=== PATIENT | female | born 1975 | race Caucasian/White ===

== ENCOUNTER 2017-11-24 20:00 | Emergency (ER) | payer OTHER ==
[~2017-11-24] VITALS: Ht 167.6 cm; Wt 108.9 kg
[~2017-11-24 20:00] MED LIST: AMOCLA875 PO; ASPI81CH PO; BIRTH CONTROL; BP MED; DICL250 PO; DICY20 PO; DOCU100 PO; DULO30; Esgic Tablet1 EACH PO; FENO145 PO; HYDACE5 PO; HYDROCHLOROTHIAZIDE; IBUP800; IBUP800 PO; LEVOTHYROXINE; LEVSOD100 PO; LEVSOD150 PO; LEVSOD200 PO; LEVSOD25 PO; LEVSOD75 PO; LORA10ER PO; LOSARTAN; METF500; METO100ER PO; METO25ER PO; MULVITMINE; NEBI5 PO; Norco 5-325 Ta1 EACH PO; OXYACE5T PO; Omeprazole20 M1 PO; PANT40 PO; PENVK500 PO; PHENTERMINE; POLY17UD PO; PRAV10 PO; PRAV20 PO; PROC10 PO; PROM25 PO; Percocet 5-3251 EACH PO; RANI150 PO; RXHYDACE PO; SOLI5 PO; SULTRIDS PO; TELM40/12. PO; TELM80 PO; TOPI25 PO; TRAZ50 PO; TRICOR; Zofran8 MG PO; [UNRECOGNIZED DRUG - REMARK]; [UNRECOGNIZED DRUG - REMARK]; [UNRECOGNIZED DRUG - REMARK]; [UNRECOGNIZED DRUG - REMARK]; [UNRECOGNIZED DRUG - REMARK]; [UNRECOGNIZED DRUG - REMARK]
== END 2017-11-24 23:50 | disposition home or self-care (01) ==
LOC: ER 20:00
DX: R10.32 Left lower quadrant pain (principal); Z91.048 Other nonmedicinal substance allergy status; Z91.030 Bee allergy status; Z88.5 Allergy status to narcotic agent; Z79.899 Other long term (current) drug therapy; Z90.49 Acquired absence of other specified parts of digestive tract; Z98.51 Tubal ligation status; Z90.81 Acquired absence of spleen
CPT/HCPCS: 72170; 81025; 96372; 99283; J1885

== ENCOUNTER 2018-03-01 16:40 | Emergency (ER) | payer OTHER ==
[~2018-03-01] VITALS: Ht 165.1 cm; Wt 107.5 kg
[2018-03-01 18:07] LABS: Source, Urine Clean Catch
[2018-03-01 18:13] LABS: Appearance, Urine Clear (Clear); Bilirubin, Urine Neg (Neg); Blood, Urine 1+ (Neg); Color, Urine Yellow (P-Yellow); Glucose Qualitative, Urine Neg (Neg); Ketones, Urine Neg (Neg); Leukocyte Esterase, Urine Neg (Neg); Nitrite, Urine Neg (Neg); Protein, Urine Neg (Neg); Specific Gravity, Urine 1.025 (1.003-1.022); Urobilinogen, Urine NORM (Normal)
[2018-03-01 18:19] LABS: Bacteria Rare /hpf; Mucus Mod (0-Heavy); Squamous Epithelial Cells Many /hpf (Few); White Blood Cells, Urine 0-2 /hpf (0-5)
[2018-03-01 18:57] LABS: BASOPHILS ABSOLUTE AUTO 0.09 K/mm3 (0.00-0.23); BASOPHILS PERCENT AUTO 1 % (0-2); EOSINOPHILS ABSOLUTE AUTO 0.21 K/mm3 (0.00-0.68); EOSINOPHILS PERCENT AUTO 1 % (0-6); Hematocrit 36.9 % (33.0-51.0); Hemoglobin 12.3 g/dL (11.5-16.0); IMMATURE GRAN ABSOLUTE AUTO 0.06 K/mm3 (0.00-0.10); IMMATURE GRAN PERCENT AUTO 0 % (0-1); LYMPHOCYTES ABSOLUTE AUTO 3.37 K/mm3 (0.84-5.20); LYMPHOCYTES PERCENT AUTO 23 % (21-46); MONOCYTES PERCENT AUTO 13 % (4-13); Mean Corpuscular HGB 31.5 pg (26.0-34.0); Mean Corpuscular HGB Conc 33.3 g/dL (31.5-36.5); Mean Corpuscular Volume 94 fL (80-100); Mean Platelet Volume 9.9 fL (9.1-12.4); NEUTROPHILS ABSOLUTE AUTO 9.19 K/mm3 (1.96-9.15); NEUTROPHILS PERCENT AUTO 62 % (41-73); Platelet Count 338 K/mm3 (150-400); RDW Coefficient Variation 12.9 % (11.7-14.2); RDW Standard Deviation 44.3 fL (35.1-46.3); Red Blood Cell Count 3.91 M/mm3 (3.80-5.20); White Blood Cell Count 14.92 K/mm3 (4.00-11.30)
[2018-03-01 19:13] LABS: Alanine Aminotransfer (ALT/SGP 17 U/L (12-78); Albumin, Blood 3.6 g/dL (3.4-5.0); Albumin/Globulin Ratio 1.1 (0.8-1.8); Alk Phos 65 U/L (50-136); Anion Gap 6 mmol/L (6-16); Aspartate Aminotrans (AST/SGOT 16 U/L (12-37); Bilirubin, Total 0.3 mg/dL (0.1-1.0); Blood Urea Nitrogen 12 mg/dL (8-24); Bun/Creatinine Ratio 12.9 (12.0-20.0); CO2, Blood 25 mmol/L (21-32); Calcium, Blood 9.3 mg/dL (8.5-10.1); Chloride, Blood 110 mmol/L (98-108); Creatinine, Blood 0.93 mg/dL (0.40-1.00); Globulin, Blood 3.4 g/dL (2.2-4.0); Glomerular Filtration Rate >60 (60-); Glucose, Blood 88 mg/dL (70-99); Sodium, Blood 141 mmol/L (136-145)
[2018-03-01] MEDS ORDERED: Zofran Odt4 MG SL (19:49)
[2018-03-01] MEDS ORDERED: Norco 5-325 Ta1 EACH PO (19:49)
== END 2018-03-01 20:05 | disposition home or self-care (01) ==
LOC: ER 16:40
PROVIDERS: Emergency Medicine
DX: K52.9 Noninfective gastroenteritis and colitis, unspecified (principal); Z88.8 Allergy status to other drugs, medicaments and biological substances; Z91.030 Bee allergy status; Z88.5 Allergy status to narcotic agent; Z79.899 Other long term (current) drug therapy
CPT/HCPCS: 36415; 74176; 80053; 81001; 81025; 83690; 85025; J2405

== ENCOUNTER 2018-04-20 19:28 | Emergency (ER) | payer OTHER ==
[~2018-04-20] VITALS: Ht 167.6 cm; Wt 108.9 kg
[~2018-04-20 19:28] MED LIST changes: +Zofran Odt4 MG SL
[2018-04-20 23:10] LABS: Calcium, Ionized (POC) 1.18 mmol/L (1.10-1.46); Chloride (POC) 105 mmol/L (98-108); Creatinine (POC) 0.8 mg/dL (0.6-1.0); Glucose (ISTAT POC) 83 mg/dL (70-99); Hemoglobin (POC) 11.6 g/dL (12.0-16.0); Potassium (POC) 3.8 mmol/L (3.5-5.5); Sodium (POC) 139 mmol/L (135-148); Total CO2 (POC) 23 mmol/L (21-32)
== END 2018-04-21 00:01 | disposition home or self-care (01) ==
LOC: ER 19:28
PROVIDERS: Emergency Medicine
DX: G89.18 Other acute postprocedural pain (principal); R10.31 Right lower quadrant pain; Z88.8 Allergy status to other drugs, medicaments and biological substances; Z91.030 Bee allergy status; Z88.5 Allergy status to narcotic agent; Z79.899 Other long term (current) drug therapy
CPT/HCPCS: 80047; 85014; 93926; 99284

== ENCOUNTER → 2018-04-25 | Outpatient (CLI) | payer OTHER | END | disposition home or self-care (01) | LOC: LAB EV 17:00 → LAB SHORT 17:00 | DX: N39.0 Urinary tract infection, site not specified (principal) | CPT/HCPCS: 87077; 87086; 87186 ==

== ENCOUNTER 2018-06-10 00:01 | Emergency (ER) | payer OTHER ==
[~2018-06-10] VITALS: Ht 167.6 cm; Wt 111.1 kg
[2018-06-10] MEDS ORDERED: LOSA25 PO (00:09)
[2018-06-10] MEDS ORDERED: PRAV20 PO (00:09)
[2018-06-10] MEDS ORDERED: METCAR500 PO (02:11)
== END 2018-06-10 02:29 | disposition home or self-care (01) ==
LOC: ER 00:01
DX: M43.6 Torticollis (principal); Z88.8 Allergy status to other drugs, medicaments and biological substances; Z88.5 Allergy status to narcotic agent; Z91.030 Bee allergy status; Z79.899 Other long term (current) drug therapy
CPT/HCPCS: 99282

== ENCOUNTER 2018-11-05 16:24 | Emergency (ER) | payer OTHER ==
[~2018-11-05] VITALS: Ht 167.6 cm; Wt 113.4 kg
[~2018-11-05 16:24] MED LIST changes: +LOSA25 PO; +METCAR500 PO
[2018-11-05] MEDS ORDERED: TRAZ100 PO (16:48)
[2018-11-05 17:02] LABS: BASOPHILS ABSOLUTE AUTO 0.09 K/mm3 (0.00-0.23); BASOPHILS PERCENT AUTO 1 % (0-2); EOSINOPHILS ABSOLUTE AUTO 0.25 K/mm3 (0.00-0.68); EOSINOPHILS PERCENT AUTO 2 % (0-6); Hematocrit 36.9 % (33.0-51.0); Hemoglobin 12.5 g/dL (11.5-16.0); IMMATURE GRAN ABSOLUTE AUTO 0.08 K/mm3 (0.00-0.10); IMMATURE GRAN PERCENT AUTO 1 % (0-1); LYMPHOCYTES ABSOLUTE AUTO 3.61 K/mm3 (0.84-5.20); LYMPHOCYTES PERCENT AUTO 31 % (21-46); MONOCYTES ABSOLUTE AUTO 1.59 K/mm3 (0.16-1.47); MONOCYTES PERCENT AUTO 14 % (4-13); Mean Corpuscular HGB 31.8 pg (26.0-34.0); Mean Corpuscular HGB Conc 33.9 g/dL (31.5-36.5); Mean Corpuscular Volume 94 fL (80-100); Mean Platelet Volume 9.8 fL (9.1-12.4); NEUTROPHILS ABSOLUTE AUTO 5.93 K/mm3 (1.96-9.15); NEUTROPHILS PERCENT AUTO 51 % (41-73); Platelet Count 357 K/mm3 (150-400); RDW Coefficient Variation 13.2 % (11.7-14.2); RDW Standard Deviation 45.6 fL (35.1-46.3); Red Blood Cell Count 3.93 M/mm3 (3.80-5.20); White Blood Cell Count 11.55 K/mm3 (4.00-11.30)
[2018-11-05 17:24] LABS: Alanine Aminotransfer (ALT/SGP 24 U/L (12-78); Albumin, Blood 3.3 g/dL (3.4-5.0); Albumin/Globulin Ratio 0.9 (0.8-1.8); Alk Phos 57 U/L (50-136); Anion Gap 9 mmol/L (6-16); Aspartate Aminotrans (AST/SGOT 19 U/L (12-37); Bilirubin, Total 0.2 mg/dL (0.1-1.0); Blood Urea Nitrogen 16 mg/dL (8-24); Bun/Creatinine Ratio 16.1 (12.0-20.0); CO2, Blood 21 mmol/L (21-32); Calcium, Blood 8.6 mg/dL (8.5-10.1); Chloride, Blood 109 mmol/L (98-108); Globulin, Blood 3.8 g/dL (2.2-4.0); Glomerular Filtration Rate >60 (60-); Glucose, Blood 103 mg/dL (70-99); Potassium, Blood 4.2 mmol/L (3.5-5.5); Sodium, Blood 139 mmol/L (136-145); Total Protein, Blood 7.1 g/dL (6.4-8.2); Troponin I <0.015 ng/mL (0.000-0.040)
[2018-11-05] MEDS ORDERED: Percocet 5-3251 EACH PO (19:39)
[2018-11-05] MEDS ORDERED: Keflex500 MG PO (19:39)
== END 2018-11-05 19:56 | disposition home or self-care (01) ==
LOC: ER 16:24
PROVIDERS: Physician Assistant
DX: R07.9 Chest pain, unspecified (principal); I10 Essential (primary) hypertension; K21.9 Gastro-esophageal reflux disease without esophagitis; G43.909 Migraine, unspecified, not intractable, without status migrainosus; Z88.5 Allergy status to narcotic agent; Z88.8 Allergy status to other drugs, medicaments and biological substances; Z79.899 Other long term (current) drug therapy
CPT/HCPCS: 36415; 71046; 80053; 84484; 85025; 93005; 93010; 96374; 99285-25

== ENCOUNTER 2019-02-18 22:39 | Emergency (ER) | payer OTHER ==
[~2019-02-18] VITALS: Ht 167.6 cm; Wt 111.1 kg
[~2019-02-18 22:39] MED LIST changes: +Keflex500 MG PO; +TRAZ100 PO
[2019-02-18 23:17] LABS: BASOPHILS PERCENT AUTO 1 % (0-2); EOSINOPHILS ABSOLUTE AUTO 0.08 K/mm3 (0.00-0.68); EOSINOPHILS PERCENT AUTO 1 % (0-6); Hemoglobin 13.2 g/dL (11.5-16.0); IMMATURE GRAN ABSOLUTE AUTO 0.05 K/mm3 (0.00-0.10); IMMATURE GRAN PERCENT AUTO 0 % (0-1); LYMPHOCYTES ABSOLUTE AUTO 4.76 K/mm3 (0.84-5.20); LYMPHOCYTES PERCENT AUTO 32 % (21-46); MONOCYTES ABSOLUTE AUTO 1.43 K/mm3 (0.16-1.47); MONOCYTES PERCENT AUTO 10 % (4-13); Mean Corpuscular HGB 31.4 pg (26.0-34.0); Mean Corpuscular Volume 95 fL (80-100); NEUTROPHILS PERCENT AUTO 57 % (41-73); Platelet Count 386 K/mm3 (150-400); RDW Coefficient Variation 13.5 % (11.7-14.2); RDW Standard Deviation 47.1 fL (35.1-46.3); Red Blood Cell Count 4.21 M/mm3 (3.80-5.20); White Blood Cell Count 14.92 K/mm3 (4.00-11.30)
[2019-02-18 23:41] LABS: Alanine Aminotransfer (ALT/SGP 19 U/L (12-78); Albumin, Blood 3.9 g/dL (3.4-5.0); Albumin/Globulin Ratio 1.1 (0.8-1.8); Alk Phos 61 U/L (50-136); Anion Gap 10 mmol/L (6-16); Aspartate Aminotrans (AST/SGOT 12 U/L (12-37); Bilirubin, Total 0.4 mg/dL (0.1-1.0); Blood Urea Nitrogen 22 mg/dL (8-24); Bun/Creatinine Ratio 19.8 (12.0-20.0); CO2, Blood 23 mmol/L (21-32); Calcium, Blood 9.6 mg/dL (8.5-10.1); Chloride, Blood 107 mmol/L (98-108); Creatinine, Blood 1.11 mg/dL (0.40-1.00); Globulin, Blood 3.7 g/dL (2.2-4.0); Glomerular Filtration Rate 57 (60-); Glucose, Blood 87 mg/dL (70-99); Potassium, Blood 3.9 mmol/L (3.5-5.5); Sodium, Blood 140 mmol/L (136-145); Total Protein, Blood 7.6 g/dL (6.4-8.2); Troponin I <0.015 ng/mL (0.000-0.040)
[2019-02-19 00:49] LABS: Influenza A Negative (NEGATIVE); Influenza B Negative (NEGATIVE)
== END 2019-02-19 01:40 | disposition home or self-care (01) ==
LOC: ER 22:39
PROVIDERS: Emergency Medicine
DX: J38.5 Laryngeal spasm (principal); J06.9 Acute upper respiratory infection, unspecified; Z88.5 Allergy status to narcotic agent; Z91.030 Bee allergy status; Z88.8 Allergy status to other drugs, medicaments and biological substances; Z79.899 Other long term (current) drug therapy; I10 Essential (primary) hypertension; G43.909 Migraine, unspecified, not intractable, without status migrainosus
CPT/HCPCS: 36415; 71046; 80053; 83880; 84484; 85025; 87804; 93005; 93010; 94640; 99285-25

== ENCOUNTER 2019-06-05 00:18 | Emergency (ER) | payer OTHER ==
[~2019-06-05] VITALS: Ht 167.6 cm; Wt 108.9 kg
[2019-06-05] MEDS ORDERED: CLARITIN5 MG PO (00:49)
== END 2019-06-05 01:15 | disposition home or self-care (01) ==
LOC: ER 00:18
DX: L23.7 Allergic contact dermatitis due to plants, except food (principal); Z88.8 Allergy status to other drugs, medicaments and biological substances; Z91.030 Bee allergy status; Z88.5 Allergy status to narcotic agent; Z79.899 Other long term (current) drug therapy
CPT/HCPCS: 96372; 99282-25; J3301

== ENCOUNTER 2019-08-06 18:51 | Inpatient (IN) | payer OTHER ==
[~2019-08-06] VITALS: Ht 167.6 cm; Wt 100.5 kg
[~2019-08-06 18:51] MED LIST changes: -ACET325 PO; -OMEPRAZOLE20 MG PO; -OXYM.05NI; -POLYETHYLENE G500 G1 PO; -PROM12.5S PO; -SENN187 PO; -THERA1 EACH PO; -TOPI50 PO; -WARF5 PO
[2019-08-06] MEDS ORDERED: Percocet 5-3251 EACH PO (20:09)
[2019-08-06] MEDS ORDERED: TOPI50 PO (20:09)
[2019-08-06] MEDS ORDERED: METO25ER PO (20:09)
[2019-08-06] MEDS ORDERED: THERA1 EACH PO (20:10)
[2019-08-06] MEDS ORDERED: OMEPRAZOLE20 MG PO (20:10)
--- NOTE | 2019-08-07 | NUR ---
ADMIT - ASSUMED CARE PATIENT ARRIVED VIA GURNEY FROM ER. AMBULATED WITH STEADY GAIT FROM [place] TO UNIT BED. PATIENT ALERT AND ORIENTED X4 UPON ARRIVAL. REPORTED MODERATE ABD PAIN - PATIENT STATED SHE HAD A ABD SURGERY 2 WEEKS AGO IN [place] (PICTURES TAKEN AND IN CHART)- PEG TUB NOTED IN ABD THAT PATIENT STATES SHE GIVE BOLUS FEEDINGS PRN WHEN HER BLOOD SUGARS ARE LOW. PATIENTS SPOUSE AT BEDSIDE FOR THE NIGHT. RESP E/U ON ROOM AIR. PATIENT MEDICATED FOR PAIN PER EMAR AND HEPARIN GTT STARTED PER EMAR. PATIENT IN NSR IN THE 90'S. CALL LIGHT W/I REACH, WILL CONTINUE TO [facility].
[2019-08-07 00:27] LABS: International Normalized Ratio 1.03; Prothrombin Time Results 10.9 Sec (9.7-11.5)
--- NOTE | 2019-08-07 06:00 | NUR ---
PCU ADMIT/NOC SHIFT SUMMARY PATIENT ARRIVED FROM ER AND AMBULATED FROM [place] TO UNIT BED WITH STEADY GAIT. NO FURTHER ABD PAIN REPORT AFTER PATIENT MEDICATED. HER SLEPT IN ROOM AT BEDSIDE. NO ACUTE CHANGED. HEPARIN GTT CONTINUING PER EMAR ORDERS. NO FURTHER EVENTS OR CHANGES NOTED. WILL CONTINUE TO MONITOR AND GIVE REPORT TO DAYSHIFT RN.
[2019-08-07 07:08] LABS: BASOPHILS ABSOLUTE AUTO 0.18 K/mm3 (0.00-0.23); BASOPHILS PERCENT AUTO 2 % (0-2); EOSINOPHILS ABSOLUTE AUTO 0.93 K/mm3 (0.00-0.68); EOSINOPHILS PERCENT AUTO 8 % (0-6); Hematocrit 36.6 % (33.0-51.0); Hemoglobin 12.3 g/dL (11.5-16.0); IMMATURE GRAN ABSOLUTE AUTO 0.06 K/mm3 (0.00-0.10); IMMATURE GRAN PERCENT AUTO 1 % (0-1); LYMPHOCYTES PERCENT AUTO 27 % (21-46); MONOCYTES PERCENT AUTO 14 % (4-13); Mean Corpuscular HGB 31.2 pg (26.0-34.0); Mean Corpuscular HGB Conc 33.6 g/dL (31.5-36.5); Mean Corpuscular Volume 93 fL (80-100); Mean Platelet Volume 10.7 fL (9.1-12.4); NEUTROPHILS PERCENT AUTO 49 % (41-73); Platelet Count 343 K/mm3 (150-400); RDW Coefficient Variation 12.8 % (11.7-14.2); RDW Standard Deviation 44.4 fL (35.1-46.3); Red Blood Cell Count 3.94 M/mm3 (3.80-5.20); White Blood Cell Count 11.47 K/mm3 (4.00-11.30)
[2019-08-07 07:28] LABS: Anion Gap 11 mmol/L (6-16); Blood Urea Nitrogen 12 mg/dL (8-24); Bun/Creatinine Ratio 15.4 (12.0-20.0); CO2, Blood 21 mmol/L (21-32); Calcium, Blood 8.7 mg/dL (8.5-10.1); Chloride, Blood 109 mmol/L (98-108); Creatinine, Blood 0.78 mg/dL (0.40-1.00); Glomerular Filtration Rate >60 (60-); Glucose, Blood 88 mg/dL (70-99); Potassium, Blood 3.8 mmol/L (3.5-5.5); Sodium, Blood 141 mmol/L (136-145); Troponin I 0.019 ng/mL (0.000-0.040)
--- NOTE | 2019-08-07 08:39 | NUR ---
AM NOTE. ASSUMED CARE OF PT APROX 0700, PT IS A&Ox4 AND IND/SBA IN THE ROOM. PT WAS ADMITTED FOR BILAT PE. PT IS S/P [facility] ON 07/20. PT WAS D/C'D HOME FROM [facility] ON FRIDAY 08/03. PT'S VS STABLE AT THIS TIME. PT DENIES ANY CHEST PAIN. PT C/O OF PAIN RADIATING UP HER NECK AND THROAT WITH BREATHING. PT BECOMES SLIGHTLY SOB WITH ACTIVITY BUT O2 SATS STAY ABOVE 92%. PT IS ON RA AT THIS TIME. PT HAS MIDLINE INCISION WITH A FEW YEN THAT WILL BE REMOVED TODAY PER 'S VERBAL ORDER. PT HAS PEG TUBE TO THE RUQ WITH SOME YELLOW/GREEN DISCHARGE, PROVIDER IS AWARE. PT'S IS AT THE BEDSIDE. CALL LIGHT IN REACH, BED IS LOCKED AND LOW WILL CONTINUE TO MONITOR.
--- NOTE | 2019-08-07 11:48 | NUR ---
ASSUMED CARE OF PATIENT AT APROX 1145. ASSESSMENT DONE AT THIS TIME, LUNGS DIM IN BASES, DENIES SOB AT REST BUT STATES DOES HAVE INCREASING SOB W/AMBULATION. MIDLINE ABDOMINAL INCISION OPEN TO AIR WITH YEN AND STERI STRIPS, YEN TO BE REMOVED TODAY PER REPORTING RN. PEG TUB PRESENT IN LUQ, PT REPORTS TENDERNESS AT SITE, NO REDNESS OR DRAINAGE FROM SITE. HEPARIN DRIP RUNNING PER EMAR.
--- NOTE | 2019-08-07 14:02 | NUR ---
Echocardiogram completed.
--- NOTE | 2019-08-07 15:57 | NUR ---
HEPARIN INFUSION RATE INCREASED TO 27.4ML/HR. VERIFIED WITH MER NIETO RN
--- NOTE | 2019-08-07 18:44 | NUR ---
SHIFT SUMMARY PT HAS DONE WELL THIS SHIFT. NO C/O SOB AT REST, MODERATE W/EXCERTION. HEPARIN GTT PER EMAR. YEN REMOVED FROM ABDOMINAL INCISION AND STERI-STRIP PLACED AT UMBILICUS. PEG TUBE FLUSHED WITH 30ML WATER PER PT REQUEST. TOLERATING SMALL AMOUNTS OF PO. DIETARY IN TO SPEAK WITH PT RE NUTRITIONAL INTAKE.
[2019-08-08 04:02] LABS: Hemoglobin 11.9 g/dL (11.5-16.0); Mean Corpuscular HGB 30.9 pg (26.0-34.0); Mean Corpuscular HGB Conc 33.1 g/dL (31.5-36.5); Mean Corpuscular Volume 94 fL (80-100); Platelet Count 293 K/mm3 (150-400); RDW Coefficient Variation 12.9 % (11.7-14.2); RDW Standard Deviation 44.4 fL (35.1-46.3); Red Blood Cell Count 3.85 M/mm3 (3.80-5.20); White Blood Cell Count 10.94 K/mm3 (4.00-11.30)
[2019-08-08 04:19] LABS: Anion Gap 7 mmol/L (6-16); Blood Urea Nitrogen 10 mg/dL (8-24); CO2, Blood 21 mmol/L (21-32); Calcium, Blood 8.8 mg/dL (8.5-10.1); Chloride, Blood 113 mmol/L (98-108); Creatinine, Blood 0.77 mg/dL (0.40-1.00); Glomerular Filtration Rate >60 (60-); Glucose, Blood 90 mg/dL (70-99); Potassium, Blood 4.7 mmol/L (3.5-5.5); Sodium, Blood 141 mmol/L (136-145)
[2019-08-08 04:23] LABS: International Normalized Ratio 1.02; Prothrombin Time Results 10.8 Sec (9.7-11.5)
--- NOTE | 2019-08-08 04:27 | NUR ---
Nurse notified me to not get the 4:30 CBG
--- NOTE | 2019-08-08 05:14 | NUR ---
PCU NOC SHIFT SUMMARY PATIENT REMAINS ALERT AND ORIENTED T/O SHIFT X4. RESP E/U AT REST ON ROOM AIR - REPORTS SOME 'DIAPHRAM' PAIN WITH DEEP BREATHS. PATIENT ENCOURAGED TO COUGH AND DEEP BREATH, O2 SATURATION WNL - SEE VS. LUNG SOUNDS CLEAR. NO CARDIAC EVENTS PER PAPER WRAPPING MACHINE OPERATOR, PATIENT REMAINED IN NSR TO ST IN THE 90-105. PATIENT AMBULATES TO BATHROOM INDEPENDENTLY - SHOWERED THIS SHIFT, TOLERATED WELL. CALL LIGHT W/I REACH, WILL CONTINUE TO MONITOR AND REPORT TO DAYSHIFT RN.
--- NOTE | 2019-08-08 07:29 | NUR ---
Bedside report received from Rachel Gupta RN. The pt is awake, and has no complaints at this time. Heparin drip was verified at the bedside with 2 RNs and the eMAR.
--- NOTE | 2019-08-08 18:34 | NUR ---
SHIFT SUMMARY OX4 PLEASANT. AMBULATES WELL. HEPARIN GTT AND PO COUMADIN DOSING. RECENT GASTRIC SURGERY. DUMPING SYNDROME. PEG TUBE "FOR VEGAN SUPPLEMENTS/SHAKES" BUT EATS AND DRINKS WELL. HODGKIN'S LYMPHOMA. BILATERAL PE'S. NEGATIVE FOR DVT'S TODAY.
--- NOTE | 2019-08-08 21:49 | NUR ---
PCU NOC SHIFT NOTE PATIENT SITTING UP IN BED VISITING WITH FAMILY. PATIENT ALERT AND ORIENTED X4. PATIENT REPORTS ON GOING CHRONIC/ACUTE PAIN IN HER ABD AND RIBS/DIAPHRAM - PATIENT MEDICATED PER EMAR AND POSITIONED FOR COMFORT. PATIENTS SUGICAL SITE IS HEALING WELL - 3 STERI STRIPS NOTED, OTHERWISE OPEN TO AIR. PEG TUB ALSO NOTED (NO CARE ORDERS AT THIS TIME FOR PEG). RESP E/U AT REST WITH SHALLOW BREATHING NOTED, OCCASSIONAL COUGH - PATIENT REMAINS ON ROOM AIR. HEPARIN GTT RUNNING PER EMAR LAST VERIFIED WITH DANYEL De La Paz RN. NO ACUTE FINDINGS. PATIENT MED NO TELE AT THIS TIME. CALL LIGHT W/I REACH. WILL CONTINUE TO MONITOR.
--- NOTE | 2019-08-09 00:40 | NUR ---
REPORTED TO ELIANA PRITCHARD. PATIENT VISITING W/ FAMILY IN ROOM. CALL LIGHT W/I REACH.
--- NOTE | 2019-08-09 03:44 | NUR ---
ASSUMED PT CARE FROM FRANCHESKA MONROY AT 0300 PT SITTING UP IN BED; VERY SOFT SPOKEN. ALERT AND ORIENTED X4; ABLE TO MAKE NEEDS KNOWN. POWERGLIDE TO LEFT UPPER ARM; HEPARIN GTT INFUSING AT 22UNITS/KG/HR AT A RATE OF 33.4 MLS/HR, AND NS INFUSING AT 100MLS/HR. LUNG SOUNDS ARE CLEAR TO BILATERAL UPPER LOBES AND DIMINISHED TO BILATERAL LOWER LOBES. NO COUGH NOTED. ABDOMEN IS SOFT, TENDER TO INCISION WITH SLIGHT DEHISCENCE TO INCISION PROXIMAL TO UMBILICUS. THE REST OF INCISION IS WELL APPROXIMATED WITH NO S/SX OF DEHISCENCE. PT EDUCATED REGARDING SPLINTING WITH PILLOW FOR COUGHING, REPOSITIONING, ETC... PT DEMONSTRATED UNDERSTANDING. ACTIVE BTX4. PEG TUBE REMAINS SUTURED TO LEFT UPPER QUADRANT; HOWEVER, PT ABLE TO SWALLOW AND EAT ADEQUATELY. THEREFORE, PEG TUBE HAS NOT BEEN USED. MEDICATED WITH TWO TABS OF PERCOCET R/T 4/10 PAIN TO ABDOMEN. NO EDEMA NOTED. PT IS INDEPENDENT WITH REPOSITIONING SELF IN BED. CALL LIGHT LEFT WITHIN REACH; PT ABLE TO MAKE NEEDS KNOWN.
[2019-08-09 03:48] LABS: Hematocrit 34.6 % (33.0-51.0); Hemoglobin 11.5 g/dL (11.5-16.0); Mean Corpuscular HGB 31.6 pg (26.0-34.0); Mean Corpuscular HGB Conc 33.2 g/dL (31.5-36.5); Mean Corpuscular Volume 95 fL (80-100); Mean Platelet Volume 10.9 fL (9.1-12.4); Platelet Count 313 K/mm3 (150-400); RDW Coefficient Variation 12.7 % (11.7-14.2); RDW Standard Deviation 44.4 fL (35.1-46.3); Red Blood Cell Count 3.64 M/mm3 (3.80-5.20); White Blood Cell Count 8.78 K/mm3 (4.00-11.30)
[2019-08-09 04:07] LABS: International Normalized Ratio 1.13; Prothrombin Time Results 11.8 Sec (9.7-11.5)
--- NOTE | 2019-08-09 18:13 | NUR ---
SHIFT SUMMARY PT CONTINUED ON HEPARIN DRIP. NO CHANGES TO DOSING. 22 INFUSION RATE. PT MEDICATED FOR PAIN TWICE THIS SHIFT. REPORTS MOST PAIN AROUND HER PEG TUBE. PT ABD WOUND CLEANED & DRESSED THIS SHIFT. NO OTHER CHANGES IN ASSESSMENT AT THIS TIME. VSS. WILL CONTINUE TO MONITOR UNTIL TURNOVER IS COMPLETE.
[2019-08-10 06:17] LABS: International Normalized Ratio 1.72; Prothrombin Time Results 17.4 Sec (9.7-11.5)
--- NOTE | 2019-08-10 06:38 | NUR ---
SHIFT SUMMARY PT HAS REMAINED AOX4 THROUGHOUT SHIFT. VSS. PLEASANT AND COOPERATIVE WITH CARE. PT REMAINS INDEPENDENT IN ROOM THROUGHOUT SHIFT, ABLE TO AMBULATE SELF TO RESTROOM WITHOUT DIFFICULTY. PT MEDICATED MULTIPLE TIMES THROUGHOUT THE NIGHT FOR PAIN TO ABDOMEN THAT DECREASED WITH ORDERED MEDICATIONS. PT STATES THAT SITE WHERE PEG TUBE IS PLACED IS SOURCE OF DISCOMFORT, WELL SURGICAL INCISION. INCISION AND PEG SITE WITH NO REDNESS, SWELLING OR SIGNIFICANT DRAINAGE NOTED. HEPARIN DRIP CONTINUES TO INFUSE PER ORDERS AND MANAGED PER PHARMACY. PT ABLE TO REST IN BED THROUGHOUT MUCH OF THE NIGHT. NO OTHER CHANGES NOTED FROM INITIAL ASSESSMENT. WILL CONTINUE TO MONITOR AND REPORT TO ONCOMING SHIFT RN. BED IN LOW POSITION, CALL LIGHT IN REACH.
--- NOTE | 2019-08-10 09:30 | NUR ---
ASSESSMENT- PT AWAKE, ALERT, COOPERATIVE. C/O PAIN AROUND PEG SITE, REDDENED AREA AT SITE NOTED, TUBE INTACT AND PLUGGED. ABDOMEN SOFT, NO N/V. LUNGS CLEAR, NO SOB. APICAL REGULAR, VSS, AFEBRILE. ML INCISION INTACT WITH SMALL DRESSING DI.
--- NOTE | 2019-08-10 11:30 | NUR ---
REPORT TO ELISE PRITCHARD ON SURGICAL FLOOR.
--- NOTE | 2019-08-10 11:35 | NUR ---
PT MOVED TO 211.
--- NOTE | 2019-08-10 14:20 | NUR ---
HEPARIN INFUSION RATE DECREASED TO 33.4 ML/HR, VERIFIED BY 2ND RN.
--- NOTE | 2019-08-10 19:09 | NUR ---
Echocardiogram completed.
[2019-08-11 05:44] LABS: BASOPHILS PERCENT AUTO 1 % (0-2); EOSINOPHILS ABSOLUTE AUTO 1.44 K/mm3 (0.00-0.68); EOSINOPHILS PERCENT AUTO 14 % (0-6); Hematocrit 37.5 % (33.0-51.0); Hemoglobin 12.7 g/dL (11.5-16.0); IMMATURE GRAN ABSOLUTE AUTO 0.07 K/mm3 (0.00-0.10); IMMATURE GRAN PERCENT AUTO 1 % (0-1); LYMPHOCYTES ABSOLUTE AUTO 2.97 K/mm3 (0.84-5.20); LYMPHOCYTES PERCENT AUTO 29 % (21-46); MONOCYTES ABSOLUTE AUTO 0.95 K/mm3 (0.16-1.47); MONOCYTES PERCENT AUTO 9 % (4-13); Mean Corpuscular HGB 30.9 pg (26.0-34.0); Mean Corpuscular HGB Conc 33.9 g/dL (31.5-36.5); Mean Platelet Volume 10.8 fL (9.1-12.4); NEUTROPHILS ABSOLUTE AUTO 4.76 K/mm3 (1.96-9.15); NEUTROPHILS PERCENT AUTO 46 % (41-73); Platelet Count 337 K/mm3 (150-400); RDW Coefficient Variation 12.7 % (11.7-14.2); RDW Standard Deviation 41.6 fL (35.1-46.3); Red Blood Cell Count 4.11 M/mm3 (3.80-5.20); White Blood Cell Count 10.29 K/mm3 (4.00-11.30)
[2019-08-11 05:46] LABS: Mean Corpuscular Volume 91 fL (80-100)
--- NOTE | 2019-08-11 05:54 | NUR ---
PT VSS T/O NIGHT, HR SINUS 70'S PER TELE MONITOR. SATS >92% ON RA. PT CONT TO REP SOB W/MILD EXERTION, SBA PRN W/OOB. INCISIONS CDI, G-TUBE SITE WNL. PT REP PAIN AT G-TUBE SITE, MEDICATED PER EMAR. HEPARIN GTT CONT PER ORDERS. ECHO COMPLETED, NO NEW ORDERS REC. PT USING CALL LIGHT FOR ASSISTANCE, WILL CONT TO MONITOR UNTIL REP GIVEN TO ONCOMING RN.
[2019-08-11 06:01] LABS: Anion Gap 8 mmol/L (6-16); Blood Urea Nitrogen 10 mg/dL (8-24); Bun/Creatinine Ratio 11.2 (12.0-20.0); CO2, Blood 21 mmol/L (21-32); Calcium, Blood 9.5 mg/dL (8.5-10.1); Chloride, Blood 109 mmol/L (98-108); Creatinine, Blood 0.89 mg/dL (0.40-1.00); Glomerular Filtration Rate >60 (60-); Glucose, Blood 105 mg/dL (70-99); Potassium, Blood 3.5 mmol/L (3.5-5.5); Sodium, Blood 138 mmol/L (136-145)
[2019-08-11 06:22] LABS: International Normalized Ratio 2.28; Prothrombin Time Results 22.4 Sec (9.7-11.5)
--- NOTE | 2019-08-11 07:16 | NUR ---
HEPARIN INFUSION RATE ADJUSTED TO 32.7 ML/HR. VERIFIED WITH SECOND RN
--- NOTE | 2019-08-12 08:06 | NUR ---
SHIFT SUMMARY PT RESTED WELL THIS AM. AAOX4. ABD + EAST CONTROLLED WITH 2 PAIN PILLS X1 THIS SHIFT. NO NAUSEA/EMESIS. ABD INCISION C/D/I, PEG TUBE FLUSHED WITH 30cc NS. HEP GTT PER ORDERS. CRITICAL PTT NOTED THIS SHIFT, RE-DRAW DONE CONFIRMING SUSPICION OF CONTAMINATED SAMPLE. NO ACUTE CHANGES THIS SHIFT. PT RESTING AT THIS TIME, CALL LIGHT IN REACH.
[2019-08-12 09:18] LABS: BASOPHILS ABSOLUTE AUTO 0.09 K/mm3 (0.00-0.23); BASOPHILS PERCENT AUTO 1 % (0-2); EOSINOPHILS ABSOLUTE AUTO 1.13 K/mm3 (0.00-0.68); EOSINOPHILS PERCENT AUTO 12 % (0-6); Hematocrit 37.1 % (33.0-51.0); Hemoglobin 12.6 g/dL (11.5-16.0); IMMATURE GRAN ABSOLUTE AUTO 0.04 K/mm3 (0.00-0.10); IMMATURE GRAN PERCENT AUTO 0 % (0-1); LYMPHOCYTES ABSOLUTE AUTO 3.63 K/mm3 (0.84-5.20); LYMPHOCYTES PERCENT AUTO 37 % (21-46); MONOCYTES ABSOLUTE AUTO 0.94 K/mm3 (0.16-1.47); MONOCYTES PERCENT AUTO 10 % (4-13); Mean Corpuscular HGB 31.2 pg (26.0-34.0); Mean Corpuscular Volume 92 fL (80-100); Mean Platelet Volume 10.7 fL (9.1-12.4); NEUTROPHILS ABSOLUTE AUTO 3.93 K/mm3 (1.96-9.15); NEUTROPHILS PERCENT AUTO 40 % (41-73); Platelet Count 335 K/mm3 (150-400); RDW Coefficient Variation 12.7 % (11.7-14.2); RDW Standard Deviation 42.5 fL (35.1-46.3); Red Blood Cell Count 4.04 M/mm3 (3.80-5.20); White Blood Cell Count 9.76 K/mm3 (4.00-11.30)
[2019-08-12 09:50] LABS: Anion Gap 9 mmol/L (6-16); Blood Urea Nitrogen 8 mg/dL (8-24); Bun/Creatinine Ratio 9.4 (12.0-20.0); CO2, Blood 23 mmol/L (21-32); Calcium, Blood 9.3 mg/dL (8.5-10.1); Chloride, Blood 110 mmol/L (98-108); Creatinine, Blood 0.85 mg/dL (0.40-1.00); Glomerular Filtration Rate >60 (60-); Glucose, Blood 93 mg/dL (70-99); Potassium, Blood 4.1 mmol/L (3.5-5.5); Sodium, Blood 142 mmol/L (136-145)
--- NOTE | 2019-08-12 13:53 | NUR ---
TELEPHONE CALL TO HOSPITALIST R/T PT NAUSEA AND ONLY PO PHENERGAN ORDERED AND BLOODY NOSES. NEW ORDERS RECEIVED: CHANGE PHENERGAN ROUTE TO IV AND CONSULT ENT FOR CAUTERIZATION IF BLOODY NOSES ARE LG AMOUNT.
--- NOTE | 2019-08-12 17:31 | NUR ---
SHIFT SUMMARY PT A&OX4, VSS, BEDREST WITH BRP, VOIDING WELL, LOW PO INTAKE, HEPARIN INFUSING, AWAITING FOLLOWUP CONSULT WITH DR HAM - CALLED OFFICE AND TT HIS [employer] SERVICE SCHEDULER TODAY AND SHE SAID SHE WOULD TEXT HIM AND LET HIM KNOW PT IS WAITING. AFRIN NASAL SPRAY IN PT DRAWER FOR NOSE BLEEDS. WILL REPORT TO ONCOMING TERRENCE RN.
--- NOTE | 2019-08-13 06:52 | NUR ---
PT HAD NO ACUTE CHANGES T/O NIGHT; VSS. PT REMAINS SOB W/EXERTION, DENIES AT REST. PT HAD NO C/O CP/PRESSURE. PO INTAKE MINIMAL, FLUIDS ENC PT RAMY. PT W/FLAT AFFECT, VERBALIZED FEELING DISCOURAGED W/PROLONGED HOSP STAY. SUPPORT PRN T/O NIGHT. PT INDEP IN ROOM, IS USING CALL LIGHT FOR ASSISTANCE. HEPARIN GTT TITRATED X2 THIS SHIFT PER PHARMACY ORDERS. AWAITING DR HAM INPUT. WILL CONT TO MONITOR UNTIL REP GIVEN TO ONCOMING RN.
[2019-08-13 11:47] LABS: International Normalized Ratio 1.76; Prothrombin Time Results 17.7 Sec (9.7-11.5)
--- NOTE | 2019-08-13 16:21 | NUR ---
SUMMARY PT AAOX4, VSS. HEPARING DOSE CONTINUED ON PATIENT. PT SHOWERED AND AMBULATED TO RESTROOM WITH SOME SHORTNESS OF BREATH. COMPLAINED OF PAIN ONCE TODAY. PATIENT HAS HAD A POSITIVE AFFECT AND BEEN SMILING AND LAUGHING WITH STAFF AND VISITORS. PLAN IS TO CONTINUE HEPARIN AND DISCHARGE TO HOME ON COUMADIN ON SATURDAY. PATIENT TOLERATING MINIMAL PO FOOD. DENIES NAUSEA TODAY.
[2019-08-14 04:58] LABS: International Normalized Ratio 1.63; Prothrombin Time Results 16.5 Sec (9.7-11.5)
--- NOTE | 2019-08-14 07:17 | NUR ---
SUMMARY PT VOIDING WITHOUT DIFF.PLACED SPECIPAN FOR I/O AND DISCUSSED WITH PT. PT REPORTING PO PAIN MEDS EFFECTIVE. PT VERB NO INCREASED SOB NOTED. HEP GTT WITH NO ADJUSTMENTS TO BE MADE THIS AM.BRIDGING WITH COUMADIN. PT RECEIVED FIRST DOSE LAST NIGHT. LAB DRAWS WILL CONT FOR FOLLOW UP. NO ACUTE CHANGES TONIGHT. PTWITH POOR PO INTAKE.G TUBE NOT CURRENTLY BEING USED. WILL DISCUSS WITH DAY RN REGARDING ? IV FLUIDS,?G TUBE USE FOR IMPROVED INTAKE.PT HAS ? REGARDING THIS AND CARE / FOLLOW UP IN GENERAL.GAVE PT NOTE PAD TO WRITE DOWN ? TO BE DISCUSSED WITH DR PITTS.
--- NOTE | 2019-08-14 17:10 | NUR ---
PT COUGHED UP SMALL AMT SPUTUM TINGED WITH BLOOD TALKED WITH PT IF SHE HAS HAD ANY OTHER BLEEDING STATED NO AT HOME SHE HAS SOME WHEN SHE BRUSHES HER TEETH
--- NOTE | 2019-08-14 17:35 | NUR ---
meds given as sched pt visiting with friends and family meds given as sched
[2019-08-15 05:31] LABS: BASOPHILS ABSOLUTE AUTO 0.07 K/mm3 (0.00-0.23); BASOPHILS PERCENT AUTO 1 % (0-2); EOSINOPHILS ABSOLUTE AUTO 2.23 K/mm3 (0.00-0.68); EOSINOPHILS PERCENT AUTO 19 % (0-6); Hematocrit 34.6 % (33.0-51.0); Hemoglobin 11.4 g/dL (11.5-16.0); IMMATURE GRAN ABSOLUTE AUTO 0.07 K/mm3 (0.00-0.10); IMMATURE GRAN PERCENT AUTO 1 % (0-1); LYMPHOCYTES ABSOLUTE AUTO 5.39 K/mm3 (0.84-5.20); LYMPHOCYTES PERCENT AUTO 45 % (21-46); MONOCYTES ABSOLUTE AUTO 1.29 K/mm3 (0.16-1.47); MONOCYTES PERCENT AUTO 11 % (4-13); Mean Corpuscular HGB 31.1 pg (26.0-34.0); Mean Corpuscular HGB Conc 32.9 g/dL (31.5-36.5); Mean Platelet Volume 10.6 fL (9.1-12.4); NEUTROPHILS ABSOLUTE AUTO 2.82 K/mm3 (1.96-9.15); NEUTROPHILS PERCENT AUTO 24 % (41-73); Platelet Count 303 K/mm3 (150-400); RDW Coefficient Variation 13.1 % (11.7-14.2); RDW Standard Deviation 45.3 fL (35.1-46.3); Red Blood Cell Count 3.66 M/mm3 (3.80-5.20); White Blood Cell Count 11.87 K/mm3 (4.00-11.30)
[2019-08-15 05:32] LABS: Mean Corpuscular Volume 95 fL (80-100)
[2019-08-15 05:54] LABS: Anion Gap 8 mmol/L (6-16); Blood Urea Nitrogen 10 mg/dL (8-24); Bun/Creatinine Ratio 10.9 (12.0-20.0); CO2, Blood 20 mmol/L (21-32); Calcium, Blood 8.8 mg/dL (8.5-10.1); Chloride, Blood 114 mmol/L (98-108); Creatinine, Blood 0.92 mg/dL (0.40-1.00); Glomerular Filtration Rate >60 (60-); Glucose, Blood 81 mg/dL (70-99); Sodium, Blood 142 mmol/L (136-145)
--- NOTE | 2019-08-15 06:13 | NUR ---
SHIFT SUMMARY LYING IN LOW FOWLERS WITH EYES CLOSED. HAS BEEN OOB AMBULATING TO BATHROOM X2 THIS SHIFT. MEDICATED FOR PAIN X2. EDUCATED ABOUT HEPARIN AND COUMADIN THERAPY, VOICES UNDERSTANDING. DENIES PAIN, DOSCOMFORT, OR FURTHER NEEDS AT THIS TIME. SAFETY MEASURES IN PLACE. WILL GIVE HAND OFF TO ONCOMING SHIFT USING SBAR.
[2019-08-15 07:27] LABS: International Normalized Ratio 2.82; Prothrombin Time Results 27.2 Sec (9.7-11.5)
[2019-08-15 16:14] LABS: International Normalized Ratio 3.52
[2019-08-15 16:16] LABS: Prothrombin Time Results 33.3 Sec (9.7-11.5)
--- NOTE | 2019-08-15 16:42 | NUR ---
SHIFT SUMMARY PT A&OX4, VSS, C/O SOB W/EXERTION ALTHOUGH PT REP NOT WORSENING. LAB DRAWS ORDERED, HEPARIN INFUSING, TITRATED 2X (18) - ONCE THERAPEUTIC PT WILL DC HOME. ONCE DC IS PLANNED, HOSPITALIST WANTS AN RT HOME EVAL COMPLETED PRIOR. POOR PT INTAKE. VOIDING WELL. AMB INDEPENDENT IN ROOM, TO BRP. WILL REPORT OFF TO ONCOMING NOC RN.
[2019-08-16 04:36] LABS: International Normalized Ratio 3.35; Prothrombin Time Results 31.8 Sec (9.7-11.5)
--- NOTE | 2019-08-16 06:35 | NUR ---
SUMMARY NO ACUTE CHANGES THROUGH THE NIGHT. PT DENIES CP/SOB. O2 SATS REMAIN GREATER THAN 92% ON RA. CONT BIOX IN PLACE. HEPERIN INFUSING PER EMAR ORDERS AT 17.5 UNITS PER HR. . PT'S IS AT THE BEDSIDE. PT WAS ABLE TO SHOWER LAST NIGHT. G TUBE FKUSHED WITH 30 ML WATER. INCISION EDGES INTACT. CALL LIGHT IN REACH.
[2019-08-16] MEDS ORDERED: ACET325 PO (12:14)
[2019-08-16] MEDS ORDERED: OXYM.05NI (12:15)
[2019-08-16] MEDS ORDERED: POLYETHYLENE G500 G1 PO (12:17)
[2019-08-16] MEDS ORDERED: PROM12.5S PO (12:19)
[2019-08-16] MEDS ORDERED: WARF5 PO (12:39)
[2019-08-16] MEDS ORDERED: SENN187 PO (12:46)
--- NOTE | 2019-08-16 15:22 | NUR ---
DISCHARGE SUMMARY PT A&OX4, VSS, LEFT FLOOR VIA WC WITH DATA SUPPORT ANALYST, TO GO HOME WITH , WITH ALL PERSONAL POSSESSIONS; SCRIPTS FAXED TO [facility]. DC INSTRUCTIONS PROVIDED. PT AND REP UNDERSTANDING DC INSTRUCTIONS AND FU WITH PCP, COUMADIN, LABS, DIET. POWERGLIDE DC'D.
== END 2019-08-16 13:26 | disposition home or self-care (01) | DRG 176 ==
LOC: ER 18:51 → PCU 21:21 → SURS 21:21 → PCU 22:15 → SURS 08-10 11:51
PROVIDERS: Family Medicine; Internal Medicine; Nurse Practitioner Acute Care; ADMIT Internal Medicine
DX: I26.99 Other pulmonary embolism without acute cor pulmonale (principal); C81.90 Hodgkin lymphoma, unspecified, unspecified site; Z98.84 Bariatric surgery status; Z71.89 Other specified counseling; K21.9 Gastro-esophageal reflux disease without esophagitis; Z74.01 Bed confinement status; Z68.35 Body mass index [BMI] 35.0-35.9, adult; R04.0 Epistaxis; E66.01 Morbid (severe) obesity due to excess calories; I27.20 Pulmonary hypertension, unspecified
CPT/HCPCS: 36415; 36430; 71260; 80048; 82947; 84484; 85025; 85027; 85610; 85730; 93005; 93010; 93306; 93970; 94761; 94762; 96372; 99284-25; C1751; J1170; J1644; J1650; J2550; J7030; Q9967

== ENCOUNTER → 2019-08-06 | Outpatient (CLI) | payer OTHER ==
[~2019-08-06] MED LIST changes: +ACET325 PO; +CLARITIN5 MG PO; +OMEPRAZOLE20 MG PO; +OXYM.05NI; +POLYETHYLENE G500 G1 PO; +PROM12.5S PO; +SENN187 PO; +THERA1 EACH PO; +TOPI50 PO; +WARF5 PO
[2019-08-06 17:30] LABS: BASOPHILS ABSOLUTE AUTO 0.17 K/mm3 (0.00-0.23); BASOPHILS PERCENT AUTO 1 % (0-2); EOSINOPHILS ABSOLUTE AUTO 0.59 K/mm3 (0.00-0.68); EOSINOPHILS PERCENT AUTO 4 % (0-6); Hematocrit 40.6 % (33.0-51.0); Hemoglobin 13.8 g/dL (11.5-16.0); IMMATURE GRAN ABSOLUTE AUTO 0.06 K/mm3 (0.00-0.10); IMMATURE GRAN PERCENT AUTO 1 % (0-1); LYMPHOCYTES ABSOLUTE AUTO 2.16 K/mm3 (0.84-5.20); LYMPHOCYTES PERCENT AUTO 16 % (21-46); MONOCYTES ABSOLUTE AUTO 1.55 K/mm3 (0.16-1.47); MONOCYTES PERCENT AUTO 12 % (4-13); Mean Corpuscular HGB 31.5 pg (26.0-34.0); Mean Corpuscular Volume 93 fL (80-100); Mean Platelet Volume 10.4 fL (9.1-12.4); NEUTROPHILS ABSOLUTE AUTO 8.73 K/mm3 (1.96-9.15); NEUTROPHILS PERCENT AUTO 66 % (41-73); Platelet Count 395 K/mm3 (150-400); RDW Coefficient Variation 12.7 % (11.7-14.2); RDW Standard Deviation 43.3 fL (35.1-46.3); Red Blood Cell Count 4.38 M/mm3 (3.80-5.20); White Blood Cell Count 13.26 K/mm3 (4.00-11.30)
[2019-08-06 17:34] LABS: Anion Gap 11 mmol/L (6-16); Blood Urea Nitrogen 12 mg/dL (8-24); Bun/Creatinine Ratio 13.2 (12.0-20.0); CO2, Blood 23 mmol/L (21-32); Calcium, Blood 9.5 mg/dL (8.5-10.1); Chloride, Blood 106 mmol/L (98-108); Creatinine, Blood 0.91 mg/dL (0.40-1.00); Glomerular Filtration Rate >60 (60-); Glucose, Blood 94 mg/dL (70-99); Potassium, Blood 4.3 mmol/L (3.5-5.5); Sodium, Blood 140 mmol/L (136-145)
== END | disposition home or self-care (01) ==
LOC: LAB EV 17:25 → LAB SHORT 17:25
PROVIDERS: Family Medicine
DX: R07.81 Pleurodynia (principal)
CPT/HCPCS: 80048; 85025

== ENCOUNTER 2019-08-21 20:02 | Emergency (ER) | payer OTHER ==
[~2019-08-21] VITALS: Ht 167.6 cm; Wt 95.7 kg
[~2019-08-21 20:02] MED LIST changes: +ACET325 PO; +OMEPRAZOLE20 MG PO; +OXYM.05NI; +POLYETHYLENE G500 G1 PO; +PROM12.5S PO; +SENN187 PO; +THERA1 EACH PO; +TOPI50 PO; +WARF5 PO
[2019-08-21 22:50] LABS: BASOPHILS PERCENT AUTO 1 % (0-2); EOSINOPHILS ABSOLUTE AUTO 1.73 K/mm3 (0.00-0.68); EOSINOPHILS PERCENT AUTO 15 % (0-6); Hematocrit 36.2 % (33.0-51.0); Hemoglobin 12.3 g/dL (11.5-16.0); IMMATURE GRAN ABSOLUTE AUTO 0.03 K/mm3 (0.00-0.10); IMMATURE GRAN PERCENT AUTO 0 % (0-1); LYMPHOCYTES ABSOLUTE AUTO 4.05 K/mm3 (0.84-5.20); LYMPHOCYTES PERCENT AUTO 36 % (21-46); MONOCYTES ABSOLUTE AUTO 1.08 K/mm3 (0.16-1.47); MONOCYTES PERCENT AUTO 10 % (4-13); Mean Corpuscular HGB 31.5 pg (26.0-34.0); Mean Corpuscular Volume 93 fL (80-100); Mean Platelet Volume 10.5 fL (9.1-12.4); NEUTROPHILS ABSOLUTE AUTO 4.33 K/mm3 (1.96-9.15); NEUTROPHILS PERCENT AUTO 38 % (41-73); Platelet Count 356 K/mm3 (150-400); RDW Coefficient Variation 13.7 % (11.7-14.2); RDW Standard Deviation 46.1 fL (35.1-46.3); Red Blood Cell Count 3.91 M/mm3 (3.80-5.20); White Blood Cell Count 11.32 K/mm3 (4.00-11.30)
[2019-08-21 23:06] LABS: International Normalized Ratio 2.04; Prothrombin Time Results 20.3 Sec (9.7-11.5)
[2019-08-21 23:10] LABS: Alanine Aminotransfer (ALT/SGP 27 U/L (12-78); Albumin, Blood 3.6 g/dL (3.4-5.0); Albumin/Globulin Ratio 0.9 (0.8-1.8); Alk Phos 70 U/L (50-136); Anion Gap 7 mmol/L (6-16); Aspartate Aminotrans (AST/SGOT 19 U/L (12-37); Bilirubin, Total 0.2 mg/dL (0.1-1.0); Blood Urea Nitrogen 16 mg/dL (8-24); CO2, Blood 20 mmol/L (21-32); Calcium, Blood 9.3 mg/dL (8.5-10.1); Chloride, Blood 112 mmol/L (98-108); Creatinine, Blood 0.84 mg/dL (0.40-1.00); Globulin, Blood 3.9 g/dL (2.2-4.0); Glomerular Filtration Rate >60 (60-); Glucose, Blood 79 mg/dL (70-99); Potassium, Blood 4.3 mmol/L (3.5-5.5); Sodium, Blood 139 mmol/L (136-145); Total Protein, Blood 7.5 g/dL (6.4-8.2); Troponin I <0.015 ng/mL (0.000-0.040)
== END 2019-08-21 23:53 | disposition home or self-care (01) ==
LOC: ER 20:02
PROVIDERS: Physician Assistant
DX: R10.12 Left upper quadrant pain (principal); E66.01 Morbid (severe) obesity due to excess calories; Z68.34 Body mass index [BMI] 34.0-34.9, adult; Z85.71 Personal history of Hodgkin lymphoma; Z88.8 Allergy status to other drugs, medicaments and biological substances; Z91.048 Other nonmedicinal substance allergy status; Z91.030 Bee allergy status; Z88.5 Allergy status to narcotic agent; Z79.899 Other long term (current) drug therapy
CPT/HCPCS: 71046; 74176; 80053; 84484; 85025; 85610; 93005; 93010; 99284-25; A9270

== ENCOUNTER 2019-08-28 19:20 | Emergency (ER) | payer OTHER ==
[~2019-08-28] VITALS: Ht 167.6 cm; Wt 95.2 kg
== END 2019-08-28 21:00 | disposition home or self-care (01) ==
LOC: ER 19:20
DX: M79.662 Pain in left lower leg (principal); Z85.72 Personal history of non-Hodgkin lymphomas; Z88.5 Allergy status to narcotic agent; Z88.8 Allergy status to other drugs, medicaments and biological substances; Z91.030 Bee allergy status; Z79.01 Long term (current) use of anticoagulants; Z79.899 Other long term (current) drug therapy
CPT/HCPCS: 93971

== ENCOUNTER 2019-10-03 15:14 | Emergency (ER) | payer OTHER ==
[~2019-10-03] VITALS: Ht 167.6 cm; Wt 90.7 kg
[2019-12-01] MEDS ORDERED: Augmentin 500-1 EACH PO (03:51)
[2019-12-01] MEDS ORDERED: Augmentin250 MG/5 M PO (04:53)
== END 2019-10-03 16:08 | disposition home or self-care (01) ==
LOC: ER 15:14
DX: L76.22 Postprocedural hemorrhage of skin and subcutaneous tissue following other procedure (principal); Z88.8 Allergy status to other drugs, medicaments and biological substances; Z91.038 Other insect allergy status; Z88.5 Allergy status to narcotic agent; Z79.899 Other long term (current) drug therapy; Z79.01 Long term (current) use of anticoagulants; Y83.8 Other surgical procedures as the cause of abnormal reaction of the patient, or of later complication, without mention of misadventure at the time of the procedure
CPT/HCPCS: 99283

== ENCOUNTER 2019-12-02 15:12 | Day surgery (SDC) | payer OTHER ==
[~2019-12-02] VITALS: Wt 85.1 kg
[~2019-12-02 15:12] MED LIST changes: +Augmentin 500-1 EACH PO; +Augmentin250 MG/5 M PO
[2019-12-02] MEDS ORDERED: IBU800 M1 PO (16:59)
[2019-12-02] MEDS ORDERED: Synthroid300 MCG PO (16:59)
[2019-12-02] MEDS ORDERED: TRAZ100 PO (17:00)
[2019-12-02] MEDS ORDERED: VITAMIN D-32000 UNIT PO (17:11)
[2019-12-02] MEDS ORDERED: ENOX80I SC (17:13)
[2019-12-02] MEDS ORDERED: VITAMIN D31000 UNI1 PO (17:14)
[2019-12-02] MEDS ORDERED: Ventolin/Prove6.7 GM INH (17:19)
[2019-12-02] MEDS ORDERED: EPIPEN 2-P0.3 MG/0.3 IM (17:20)
[2019-12-02] MEDS ORDERED: [UNRECOGNIZED DRUG - OTHER] PO (17:20)
== END 2019-12-02 16:47 | disposition home or self-care (01) ==
LOC: ATC 15:12
DX: I26.99 Other pulmonary embolism without acute cor pulmonale (principal); C81.90 Hodgkin lymphoma, unspecified, unspecified site; I10 Essential (primary) hypertension; E11.9 Type 2 diabetes mellitus without complications; E66.01 Morbid (severe) obesity due to excess calories; Z85.71 Personal history of Hodgkin lymphoma; Z79.01 Long term (current) use of anticoagulants; Z79.899 Other long term (current) drug therapy; Z88.8 Allergy status to other drugs, medicaments and biological substances; Z91.030 Bee allergy status
CPT/HCPCS: 96372; J1650

== ENCOUNTER 2019-12-03 00:22 | Day surgery (SDC) | payer OTHER ==
[~2019-12-03 00:22] MED LIST changes: +ENOX80I SC; +EPIPEN 2-P0.3 MG/0.3 IM; +IBU800 M1 PO; +Synthroid300 MCG PO; +VITAMIN D-32000 UNIT PO; +VITAMIN D31000 UNI1 PO; +Ventolin/Prove6.7 GM INH; +[UNRECOGNIZED DRUG - OTHER] PO
--- NOTE | 2019-12-03 17:54 | NUR ---
PT DID NOT SHOW UP FOR EITHER OF HER SCHEDULED APPOINTMENTS TODAY.
== END 2019-12-03 23:54 | disposition home or self-care (01) ==
LOC: ATC 00:22
DX: I26.99 Other pulmonary embolism without acute cor pulmonale (principal); I10 Essential (primary) hypertension; E66.01 Morbid (severe) obesity due to excess calories; E11.9 Type 2 diabetes mellitus without complications; G43.109 Migraine with aura, not intractable, without status migrainosus; Z88.8 Allergy status to other drugs, medicaments and biological substances; Z91.030 Bee allergy status; Z79.899 Other long term (current) drug therapy; Z79.01 Long term (current) use of anticoagulants; Z68.31 Body mass index [BMI] 31.0-31.9, adult
CPT/HCPCS: J1650

== ENCOUNTER 2019-12-04 00:39 | Day surgery (SDC) | payer OTHER ==
--- NOTE | 2019-12-04 10:53 | NUR ---
TALKED WITH ERIK FROM OFFICE, WHOM STATED THAT THEY WERE GOING TO GET HER STARTED ON HOME LOVENOX INJ AND WERE CURIOUS IF THIS OFFICE HANDLED THAT. I INFORMED HIM THAT THEY WOULD NEED TO SEND IN A RX TO HER PREFERRED PHARMACY, ERIK STATED THEY WOULD DO THAT INCLUDING CONTACTING THE PT. ATTEMPTED TO CONTACT PT AND THIS RN WAS UNSUCCESSFUL.
== END 2019-12-04 23:01 | disposition home or self-care (01) ==
LOC: ATC 00:39
DX: I26.99 Other pulmonary embolism without acute cor pulmonale (principal); I10 Essential (primary) hypertension; G43.909 Migraine, unspecified, not intractable, without status migrainosus; E11.9 Type 2 diabetes mellitus without complications; E66.01 Morbid (severe) obesity due to excess calories; Z91.030 Bee allergy status; Z88.8 Allergy status to other drugs, medicaments and biological substances; Z79.899 Other long term (current) drug therapy; Z79.01 Long term (current) use of anticoagulants; Z68.31 Body mass index [BMI] 31.0-31.9, adult

== ENCOUNTER 2019-12-07 00:01 | Day surgery (SDC) | payer OTHER | END 2019-12-07 22:40 | disposition home or self-care (01) | LOC: ATC 00:01 | DX: I26.99 Other pulmonary embolism without acute cor pulmonale (principal); I10 Essential (primary) hypertension; E11.9 Type 2 diabetes mellitus without complications; G43.909 Migraine, unspecified, not intractable, without status migrainosus; E78.5 Hyperlipidemia, unspecified; E66.01 Morbid (severe) obesity due to excess calories; Z88.8 Allergy status to other drugs, medicaments and biological substances; Z91.030 Bee allergy status; Z79.899 Other long term (current) drug therapy; Z79.01 Long term (current) use of anticoagulants; Z68.31 Body mass index [BMI] 31.0-31.9, adult ==

== ENCOUNTER 2020-01-20 17:18 | Emergency (ER) | payer OTHER ==
[~2020-01-20] VITALS: Ht 167.6 cm; Wt 81.7 kg
[2020-01-20 18:44] LABS: BASOPHILS ABSOLUTE AUTO 0.06 K/mm3 (0.00-0.23); BASOPHILS PERCENT AUTO 1 % (0-2); EOSINOPHILS PERCENT AUTO 1 % (0-6); Hematocrit 38.7 % (33.0-51.0); Hemoglobin 13.1 g/dL (11.5-16.0); IMMATURE GRAN ABSOLUTE AUTO 0.03 K/mm3 (0.00-0.10); IMMATURE GRAN PERCENT AUTO 0 % (0-1); LYMPHOCYTES ABSOLUTE AUTO 3.02 K/mm3 (0.84-5.20); LYMPHOCYTES PERCENT AUTO 29 % (21-46); MONOCYTES ABSOLUTE AUTO 0.94 K/mm3 (0.16-1.47); MONOCYTES PERCENT AUTO 9 % (4-13); Mean Corpuscular HGB Conc 33.9 g/dL (31.5-36.5); Mean Corpuscular Volume 94 fL (80-100); Mean Platelet Volume 10.7 fL (9.1-12.4); NEUTROPHILS ABSOLUTE AUTO 6.16 K/mm3 (1.96-9.15); NEUTROPHILS PERCENT AUTO 60 % (41-73); Platelet Count 388 K/mm3 (150-400); RDW Coefficient Variation 13.2 % (11.7-14.2); RDW Standard Deviation 45.5 fL (35.1-46.3); White Blood Cell Count 10.31 K/mm3 (4.00-11.30)
[2020-01-20 19:17] LABS: Alanine Aminotransfer (ALT/SGP 24 U/L (12-78); Albumin, Blood 3.8 g/dL (3.4-5.0); Albumin/Globulin Ratio 1.1 (0.8-1.8); Alk Phos 74 U/L (50-136); Anion Gap 6 mmol/L (6-16); Aspartate Aminotrans (AST/SGOT 16 U/L (12-37); Bilirubin, Total 0.4 mg/dL (0.1-1.0); Blood Urea Nitrogen 19 mg/dL (8-24); Bun/Creatinine Ratio 26.5 (12.0-20.0); CO2, Blood 21 mmol/L (21-32); Calcium, Blood 9.6 mg/dL (8.5-10.1); Chloride, Blood 110 mmol/L (98-108); Creatinine, Blood 0.72 mg/dL (0.40-1.00); Globulin, Blood 3.5 g/dL (2.2-4.0); Glomerular Filtration Rate >60 (60-); Glucose, Blood 78 mg/dL (70-99); Potassium, Blood 3.9 mmol/L (3.5-5.5); Sodium, Blood 137 mmol/L (136-145); Total Protein, Blood 7.3 g/dL (6.4-8.2)
[2020-01-20] MEDS ORDERED: Synthroid300 MCG PO (20:23)
[2020-01-20 21:03] LABS: Source, Urine Clean Catch
[2020-01-20 21:06] LABS: Bilirubin, Urine Neg (Neg); Blood, Urine Neg (Neg); Glucose Qualitative, Urine Neg (Neg); Ketones, Urine 2+ (Neg); Leukocyte Esterase, Urine Neg (Neg); Nitrite, Urine Neg (Neg); Protein, Urine Neg (Neg); Urobilinogen, Urine 1+ (Normal)
[2020-01-20 21:17] LABS: Appearance, Urine Clear (Clear); Color, Urine Yellow (P-Yellow)
== END 2020-01-20 22:10 | disposition home or self-care (01) ==
LOC: ER 17:18
PROVIDERS: Nurse Practitioner
DX: R10.11 Right upper quadrant pain (principal); R10.13 Epigastric pain; E03.9 Hypothyroidism, unspecified; Z88.5 Allergy status to narcotic agent; Z88.8 Allergy status to other drugs, medicaments and biological substances; Z91.030 Bee allergy status; Z79.899 Other long term (current) drug therapy
CPT/HCPCS: 36415; 74176; 76705; 80053; 81003; 83690; 85025; 96374; 99284-25; J3010

== ENCOUNTER 2020-03-05 20:49 | Emergency (ER) | payer OTHER ==
[~2020-03-05] VITALS: Ht 167.6 cm; Wt 79.8 kg
[~2020-03-05 20:49] MED LIST changes: +FAMO20 PO; +HYDR1TAB94 PO; +METO10 PO
[2020-03-05] MEDS ORDERED: CEPH500 PO (21:14)
[2020-03-05] MEDS ORDERED: Bactrim Ds Tab1 EACH PO (21:14)
[2020-03-05] MEDS ORDERED: Cephalexin250 MG/5 M PO (21:30)
[2020-03-05] MEDS ORDERED: SULTRIL10 PO (21:30)
== END 2020-03-05 22:20 | disposition home or self-care (01) ==
LOC: ER 20:49
DX: L03.311 Cellulitis of abdominal wall (principal); E03.9 Hypothyroidism, unspecified; Z88.8 Allergy status to other drugs, medicaments and biological substances; Z91.030 Bee allergy status; Z79.899 Other long term (current) drug therapy; Z88.5 Allergy status to narcotic agent
CPT/HCPCS: 99283

== ENCOUNTER 2020-06-12 01:49 | Emergency (ER) | payer OTHER ==
[~2020-06-12] VITALS: Ht 167.6 cm; Wt 79.4 kg
[~2020-06-12 01:49] MED LIST changes: +Bactrim Ds Tab1 EACH PO; +CEPH500 PO; +Cephalexin250 MG/5 M PO; +OMEP20ER PO; +SUCR1 PO; +SULTRIL10 PO
== END 2020-06-12 02:33 | disposition home or self-care (01) ==
LOC: ER 01:49
DX: Z43.1 Encounter for attention to gastrostomy (principal); Z98.84 Bariatric surgery status; Z88.5 Allergy status to narcotic agent; Z91.030 Bee allergy status; Z88.8 Allergy status to other drugs, medicaments and biological substances; Z79.899 Other long term (current) drug therapy
CPT/HCPCS: 43762; 99282-25

== ENCOUNTER 2020-07-13 22:35 | Emergency (ER) | payer OTHER ==
[~2020-07-13] VITALS: Ht 167.6 cm; Wt 80.3 kg
[2020-07-13] MEDS ORDERED: TRAZ50 PO (22:46)
[2020-07-13 23:14] LABS: BASOPHILS ABSOLUTE AUTO 0.07 K/mm3 (0.00-0.23); BASOPHILS PERCENT AUTO 1 % (0-2); EOSINOPHILS ABSOLUTE AUTO 0.18 K/mm3 (0.00-0.68); EOSINOPHILS PERCENT AUTO 2 % (0-6); Hematocrit 36.3 % (33.0-51.0); Hemoglobin 12.2 g/dL (11.5-16.0); IMMATURE GRAN ABSOLUTE AUTO 0.02 K/mm3 (0.00-0.10); IMMATURE GRAN PERCENT AUTO 0 % (0-1); LYMPHOCYTES PERCENT AUTO 41 % (21-46); MONOCYTES PERCENT AUTO 12 % (4-13); Mean Corpuscular HGB 31.6 pg (26.0-34.0); Mean Corpuscular HGB Conc 33.6 g/dL (31.5-36.5); Mean Corpuscular Volume 94 fL (80-100); Mean Platelet Volume 10.1 fL (9.1-12.4); NEUTROPHILS ABSOLUTE AUTO 3.92 K/mm3 (1.96-9.15); NEUTROPHILS PERCENT AUTO 44 % (41-73); Platelet Count 366 K/mm3 (150-400); RDW Coefficient Variation 12.8 % (11.7-14.2); RDW Standard Deviation 44.2 fL (35.1-46.3); Red Blood Cell Count 3.86 M/mm3 (3.80-5.20); White Blood Cell Count 8.89 K/mm3 (4.00-11.30)
[2020-07-13 23:32] LABS: Alanine Aminotransfer (ALT/SGP 22 U/L (12-78); Albumin, Blood 3.2 g/dL (3.4-5.0); Albumin/Globulin Ratio 0.9 (0.8-1.8); Alk Phos 71 U/L (50-136); Anion Gap 6 mmol/L (6-16); Aspartate Aminotrans (AST/SGOT 14 U/L (12-37); Bilirubin, Total 0.2 mg/dL (0.1-1.0); Blood Urea Nitrogen 17 mg/dL (8-24); Bun/Creatinine Ratio 21.9 (12.0-20.0); CO2, Blood 24 mmol/L (21-32); Calcium, Blood 8.9 mg/dL (8.5-10.1); Chloride, Blood 110 mmol/L (98-108); Creatinine, Blood 0.78 mg/dL (0.40-1.00); Globulin, Blood 3.6 g/dL (2.2-4.0); Glomerular Filtration Rate >60 (60-); Glucose, Blood 108 mg/dL (70-99); Potassium, Blood 3.8 mmol/L (3.5-5.5); Sodium, Blood 140 mmol/L (136-145); Total Protein, Blood 6.8 g/dL (6.4-8.2)
== END 2020-07-14 00:57 | disposition home or self-care (01) ==
LOC: ER 22:35
PROVIDERS: Student in an Organized Health Care Education/Training Program
DX: K31.84 Gastroparesis (principal); E03.9 Hypothyroidism, unspecified; Z79.899 Other long term (current) drug therapy; Z88.5 Allergy status to narcotic agent; Z88.8 Allergy status to other drugs, medicaments and biological substances; Z91.030 Bee allergy status; Z91.02 Food additives allergy status
CPT/HCPCS: 80053; 83690; 85025; 99284

== ENCOUNTER 2020-10-31 18:41 | Emergency (ER) | payer OTHER ==
[~2020-10-31] VITALS: Ht 167.6 cm; Wt 80.3 kg
[2020-10-31 20:00] LABS: BASOPHILS ABSOLUTE AUTO 0.07 K/mm3 (0.00-0.23); BASOPHILS PERCENT AUTO 1 % (0-2); EOSINOPHILS ABSOLUTE AUTO 0.06 K/mm3 (0.00-0.68); EOSINOPHILS PERCENT AUTO 1 % (0-6); Hematocrit 36.6 % (33.0-51.0); Hemoglobin 12.2 g/dL (11.5-16.0); IMMATURE GRAN ABSOLUTE AUTO 0.03 K/mm3 (0.00-0.10); IMMATURE GRAN PERCENT AUTO 0 % (0-1); LYMPHOCYTES ABSOLUTE AUTO 2.78 K/mm3 (0.84-5.20); LYMPHOCYTES PERCENT AUTO 22 % (21-46); MONOCYTES ABSOLUTE AUTO 1.27 K/mm3 (0.16-1.47); MONOCYTES PERCENT AUTO 10 % (4-13); Mean Corpuscular HGB 30.8 pg (26.0-34.0); Mean Corpuscular HGB Conc 33.3 g/dL (31.5-36.5); Mean Corpuscular Volume 92 fL (80-100); NEUTROPHILS ABSOLUTE AUTO 8.23 K/mm3 (1.96-9.15); NEUTROPHILS PERCENT AUTO 66 % (41-73); Platelet Count 343 K/mm3 (150-400); RDW Coefficient Variation 12.6 % (11.7-14.2); RDW Standard Deviation 43.5 fL (35.1-46.3); Red Blood Cell Count 3.96 M/mm3 (3.80-5.20); White Blood Cell Count 12.44 K/mm3 (4.00-11.30)
[2020-10-31 20:07] LABS: Source, Urine Clean Catch
[2020-10-31 20:11] LABS: Bilirubin, Urine Neg (Neg); Blood, Urine Neg (Neg); Glucose Qualitative, Urine Neg (Neg); Ketones, Urine Neg (Neg); Leukocyte Esterase, Urine Neg (Neg); Nitrite, Urine Neg (Neg); Protein, Urine Neg (Neg); Specific Gravity, Urine 1.015 (1.003-1.022); Urobilinogen, Urine NORM (Normal)
[2020-10-31 20:16] LABS: Alanine Aminotransfer (ALT/SGP 14 U/L (12-78); Albumin, Blood 3.5 g/dL (3.4-5.0); Alk Phos 70 U/L (50-136); Anion Gap 9 mmol/L (6-16); Aspartate Aminotrans (AST/SGOT 14 U/L (12-37); Bilirubin, Total 0.3 mg/dL (0.1-1.0); Blood Urea Nitrogen 20 mg/dL (8-24); Bun/Creatinine Ratio 27.2 (12.0-20.0); CO2, Blood 21 mmol/L (21-32); Calcium, Blood 9.3 mg/dL (8.5-10.1); Chloride, Blood 107 mmol/L (98-108); Creatinine, Blood 0.74 mg/dL (0.40-1.00); Globulin, Blood 3.5 g/dL (2.2-4.0); Glomerular Filtration Rate >60 (60-); Glucose, Blood 86 mg/dL (70-99); Sodium, Blood 137 mmol/L (136-145)
[2020-10-31 20:18] LABS: Appearance, Urine Clear (Clear); Color, Urine Yellow (P-Yellow)
== END 2020-10-31 21:33 | disposition home or self-care (01) ==
LOC: ER 18:41
PROVIDERS: Physician Assistant
DX: K31.84 Gastroparesis (principal); E03.9 Hypothyroidism, unspecified; Z79.899 Other long term (current) drug therapy; Z88.5 Allergy status to narcotic agent; Z91.030 Bee allergy status; Z91.02 Food additives allergy status; Z88.8 Allergy status to other drugs, medicaments and biological substances
CPT/HCPCS: 36415; 74177; 80053; 81003; 83690; 85025; 93005; 93010; 96374-59; 99284-25; J1630; J7030; Q9967

== ENCOUNTER 2021-02-13 21:52 | Emergency (ER) | payer OTHER ==
[~2021-02-13] VITALS: Ht 167.6 cm; Wt 80.7 kg
[2021-02-13 22:48] LABS: BASOPHILS ABSOLUTE AUTO 0.09 K/mm3 (0.00-0.23); BASOPHILS PERCENT AUTO 1 % (0-2); EOSINOPHILS ABSOLUTE AUTO 0.13 K/mm3 (0.00-0.68); EOSINOPHILS PERCENT AUTO 1 % (0-6); Hematocrit 37.2 % (33.0-51.0); Hemoglobin 12.9 g/dL (11.5-16.0); IMMATURE GRAN ABSOLUTE AUTO 0.04 K/mm3 (0.00-0.10); IMMATURE GRAN PERCENT AUTO 0 % (0-1); LYMPHOCYTES ABSOLUTE AUTO 4.43 K/mm3 (0.84-5.20); LYMPHOCYTES PERCENT AUTO 38 % (21-46); MONOCYTES ABSOLUTE AUTO 1.04 K/mm3 (0.16-1.47); MONOCYTES PERCENT AUTO 9 % (4-13); Mean Corpuscular HGB 31.2 pg (26.0-34.0); Mean Corpuscular HGB Conc 34.7 g/dL (31.5-36.5); Mean Corpuscular Volume 90 fL (80-100); NEUTROPHILS ABSOLUTE AUTO 5.98 K/mm3 (1.96-9.15); NEUTROPHILS PERCENT AUTO 51 % (41-73); NRBC ABSOLUTE 0.02 K/mm3 (0.00-0.02); NRBC Auto 0.2 /100 WBC (0.0-0.2); RDW Standard Deviation 42.9 fL (35.1-46.3); Red Blood Cell Count 4.14 M/mm3 (3.80-5.20); White Blood Cell Count 11.71 K/mm3 (4.00-11.30)
[2021-02-13 22:49] LABS: Mean Platelet Volume 10.8 fL (9.1-12.4); Platelet Count 204 K/mm3 (150-400)
[2021-02-13] MEDS ORDERED: CIMETIDINE300 MG/5 M PO (22:52)
[2021-02-13] MEDS ORDERED: OMEP20ER (22:52)
[2021-02-13 22:59] LABS: BASOPHILS PERCENT MAN 0 % (0-2); EOSINOPHILS ABSOLUTE MAN 0.23 K/mm3 (0.00-0.68); EOSINOPHILS PERCENT MAN 2 % (0-6); LYMPHOCYTES % ATYPICAL MANUAL 7 % (0-0); LYMPHOCYTES ABSOLUTE MAN 5.03 K/mm3 (0.84-5.20); LYMPHOCYTES PERCENT MAN 36 % (21-46); MONOCYTES PERCENT MAN 6 % (4-13); NEUTROPHILS ABSOLUTE MAN 5.03 K/mm3 (1.96-9.15); SEG NEUTROPHILS PERCENT MAN 43 % (41-73); TOTAL CELLS COUNTED 100
[2021-02-13 23:00] LABS: OTHER CELL PERCENT MAN 6 % (0-0)
[2021-02-13 23:03] LABS: Alanine Aminotransfer (ALT/SGP 18 U/L (12-78); Albumin, Blood 3.6 g/dL (3.4-5.0); Albumin/Globulin Ratio 0.9 (0.8-1.8); Alk Phos 68 U/L (50-136); Anion Gap 6 mmol/L (6-16); Aspartate Aminotrans (AST/SGOT 19 U/L (12-37); Bilirubin, Total 0.3 mg/dL (0.1-1.0); Blood Urea Nitrogen 16 mg/dL (8-24); Bun/Creatinine Ratio 20.1 (12.0-20.0); CO2, Blood 20 mmol/L (21-32); Calcium, Blood 9.3 mg/dL (8.5-10.1); Chloride, Blood 110 mmol/L (98-108); Glomerular Filtration Rate >60 (60-); Glucose, Blood 83 mg/dL (70-99); Potassium, Blood 4.3 mmol/L (3.5-5.5); Sodium, Blood 136 mmol/L (136-145); Total Protein, Blood 7.6 g/dL (6.4-8.2)
[2021-02-13 23:43] LABS: Troponin I <0.015 ng/mL (0.000-0.040)
== END 2021-02-14 01:15 | disposition home or self-care (01) ==
LOC: ER 21:52
PROVIDERS: Emergency Medicine
DX: R10.10 Upper abdominal pain, unspecified (principal); G89.29 Other chronic pain; R11.0 Nausea; Z88.5 Allergy status to narcotic agent; Z88.1 Allergy status to other antibiotic agents
CPT/HCPCS: 36415; 80053; 83690; 84484; 85025; 93005; 93010; 96374; 99284-25; A9270; A9270-GY; J3010

== ENCOUNTER 2021-05-09 22:04 | Emergency (ER) | payer OTHER ==
[~2021-05-09] VITALS: Ht 167.6 cm; Wt 79.8 kg
[~2021-05-09 22:04] MED LIST changes: +CIMETIDINE300 MG/5 M PO; +OMEP20ER
== END 2021-05-09 23:29 | disposition left against medical advice (07) ==
LOC: ER 22:04
DX: Z53.21 Procedure and treatment not carried out due to patient leaving prior to being seen by health care provider (principal)

== ENCOUNTER → 2021-07-18 | Outpatient (CLI) | payer OTHER | END | disposition home or self-care (01) | LOC: LAB 19:14 → LAB SHORT 19:14 | DX: R06.00 Dyspnea, unspecified (principal); Z86.711 Personal history of pulmonary embolism | CPT/HCPCS: 85379 ==

== ENCOUNTER 2021-08-14 02:49 | Day surgery (SDC) | payer OTHER | END 2021-08-14 16:40 | disposition home or self-care (01) | LOC: ATC 02:49 | DX: R79.0 Abnormal level of blood mineral (principal) | CPT/HCPCS: 96365; J2916 ==

== ENCOUNTER 2021-08-15 01:23 | Day surgery (SDC) | payer OTHER | END 2021-08-15 15:55 | disposition home or self-care (01) | LOC: ATC 01:23 | DX: R79.0 Abnormal level of blood mineral (principal) | CPT/HCPCS: 96365; C1751; J2916 ==

== ENCOUNTER 2021-08-16 05:16 | Day surgery (SDC) | payer OTHER ==
[2021-08-17] MEDS ORDERED: VITAMIN D5000 UNIT (13:40)
== END 2021-08-16 15:16 | disposition home or self-care (01) ==
LOC: ATC 05:16
DX: K91.2 Postsurgical malabsorption, not elsewhere classified (principal); K31.84 Gastroparesis; K46.9 Unspecified abdominal hernia without obstruction or gangrene; K21.9 Gastro-esophageal reflux disease without esophagitis; R13.10 Dysphagia, unspecified; R79.0 Abnormal level of blood mineral; E55.9 Vitamin D deficiency, unspecified; E65 Localized adiposity; K59.09 Other constipation; Z98.84 Bariatric surgery status; Z79.899 Other long term (current) drug therapy; Z79.51 Long term (current) use of inhaled steroids; Z79.890 Hormone replacement therapy; Z86.711 Personal history of pulmonary embolism; Z86.39 Personal history of other endocrine, nutritional and metabolic disease; Z79.1 Long term (current) use of non-steroidal anti-inflammatories (NSAID); Z88.8 Allergy status to other drugs, medicaments and biological substances; Z93.1 Gastrostomy status; Y83.2 Surgical operation with anastomosis, bypass or graft as the cause of abnormal reaction of the patient, or of later complication, without mention of misadventure at the time of the procedure
CPT/HCPCS: 96365; J2916

== ENCOUNTER 2021-08-17 11:43 | Emergency (ER) | payer OTHER ==
[~2021-08-17] VITALS: Ht 167.6 cm; Wt 79.4 kg
[2021-08-17] MEDS ORDERED: VITAMIN D5000 UNIT (13:40)
[2021-08-17 13:48] LABS: BASOPHILS ABSOLUTE AUTO 0.07 K/mm3 (0.00-0.23); BASOPHILS PERCENT AUTO 1 % (0-2); EOSINOPHILS ABSOLUTE AUTO 0.11 K/mm3 (0.00-0.68); EOSINOPHILS PERCENT AUTO 1 % (0-6); Hemoglobin 11.4 g/dL (11.5-16.0); IMMATURE GRAN ABSOLUTE AUTO 0.03 K/mm3 (0.00-0.10); IMMATURE GRAN PERCENT AUTO 0 % (0-1); LYMPHOCYTES ABSOLUTE AUTO 2.83 K/mm3 (0.84-5.20); LYMPHOCYTES PERCENT AUTO 31 % (21-46); MONOCYTES PERCENT AUTO 13 % (4-13); Mean Corpuscular HGB 30.4 pg (26.0-34.0); Mean Corpuscular HGB Conc 33.5 g/dL (31.5-36.5); Mean Corpuscular Volume 91 fL (80-100); Mean Platelet Volume 10.8 fL (9.1-12.4); NEUTROPHILS ABSOLUTE AUTO 4.78 K/mm3 (1.96-9.15); NEUTROPHILS PERCENT AUTO 53 % (41-73); Platelet Count 369 K/mm3 (150-400); RDW Coefficient Variation 14.3 % (11.7-14.2); RDW Standard Deviation 47.8 fL (35.1-46.3); Red Blood Cell Count 3.75 M/mm3 (3.80-5.20); White Blood Cell Count 9.02 K/mm3 (4.00-11.30)
[2021-08-17 14:26] LABS: Alanine Aminotransfer (ALT/SGP 19 U/L (12-78); Albumin, Blood 3.2 g/dL (3.4-5.0); Albumin/Globulin Ratio 0.8 (0.8-1.8); Alk Phos 64 U/L (50-136); Anion Gap 2 mmol/L (6-16); Aspartate Aminotrans (AST/SGOT 16 U/L (12-37); Bilirubin, Total 0.5 mg/dL (0.1-1.0); Blood Urea Nitrogen 17 mg/dL (8-24); Bun/Creatinine Ratio 22.7 (12.0-20.0); CO2, Blood 27 mmol/L (21-32); Calcium, Blood 9.1 mg/dL (8.5-10.1); Chloride, Blood 110 mmol/L (98-108); Creatinine, Blood 0.75 mg/dL (0.40-1.00); Globulin, Blood 3.8 g/dL (2.2-4.0); Glomerular Filtration Rate >60 (60-); Glucose, Blood 89 mg/dL (70-99); Potassium, Blood 4.1 mmol/L (3.5-5.5); Sodium, Blood 139 mmol/L (136-145)
== END 2021-08-17 16:06 | disposition home or self-care (01) ==
LOC: ER 11:43
PROVIDERS: Emergency Medicine
DX: K92.2 Gastrointestinal hemorrhage, unspecified (principal); Z98.84 Bariatric surgery status; E03.9 Hypothyroidism, unspecified; Z88.5 Allergy status to narcotic agent; Z88.8 Allergy status to other drugs, medicaments and biological substances; Z91.030 Bee allergy status; Z79.899 Other long term (current) drug therapy
CPT/HCPCS: 46600; 80053; 85025; 99285-25

== ENCOUNTER 2021-08-23 03:50 | Day surgery (SDC) | payer OTHER ==
[~2021-08-23 03:50] MED LIST changes: +VITAMIN D5000 UNIT
--- NOTE | 2021-08-23 14:21 | NUR ---
SPOKE WITH VINCENZO CASTRO RN AT DR. HARRIS OFFICE. SPOKE ABOUT PT BEING SEEN FOR GI BLEED. THIS STARTED AFTER PATIENTS 3RD DOSE OF FERRLECIT. PT SEEN IN ED. THEY CONSULTED WITH PTS GI DOC AND PT TO SEE AN OUTPATIENT. PT STATES SHE CONTINUES TO HAVE BLEEDING. SHE IS WAITING FOR PREAUTHORIZATION FOR OFFICE VISIT WITH GI DOC. OK TO PROCEDE WITH FINAL [address] OREILLY[address]
--- NOTE | 2021-08-23 14:30 | NUR ---
IV ATTEMPTED X2 BY THIS RN, UNSUCCESSFUL. PT TOLERATED WELL.
--- NOTE | 2021-08-23 15:40 | NUR ---
IV PADDED WITH 2X2 GAUZE AND COBAN. PT TO RETURN TOMORROW FOR ANOTHER IRON INFUSION.
== END 2021-08-23 15:29 | disposition home or self-care (01) ==
LOC: ATC 03:50
DX: R79.0 Abnormal level of blood mineral (principal)
CPT/HCPCS: 96365; J2916

== ENCOUNTER 2021-08-24 00:38 | Day surgery (SDC) | payer OTHER | END 2021-08-24 10:50 | disposition home or self-care (01) | LOC: ATC 00:38 | DX: R79.0 Abnormal level of blood mineral (principal); E11.9 Type 2 diabetes mellitus without complications; Z88.8 Allergy status to other drugs, medicaments and biological substances | CPT/HCPCS: 96365; J2916 ==

== ENCOUNTER 2021-08-26 21:13 | Emergency (ER) | payer OTHER ==
[~2021-08-26] VITALS: Ht 167.6 cm; Wt 79.4 kg
[2021-08-26 22:17] LABS: BASOPHILS ABSOLUTE AUTO 0.09 K/mm3 (0.00-0.23); BASOPHILS PERCENT AUTO 1 % (0-2); EOSINOPHILS ABSOLUTE AUTO 0.13 K/mm3 (0.00-0.68); EOSINOPHILS PERCENT AUTO 1 % (0-6); Hematocrit 34.6 % (33.0-51.0); Hemoglobin 11.7 g/dL (11.5-16.0); IMMATURE GRAN ABSOLUTE AUTO 0.05 K/mm3 (0.00-0.10); IMMATURE GRAN PERCENT AUTO 0 % (0-1); LYMPHOCYTES ABSOLUTE AUTO 3.43 K/mm3 (0.84-5.20); LYMPHOCYTES PERCENT AUTO 25 % (21-46); MONOCYTES ABSOLUTE AUTO 1.26 K/mm3 (0.16-1.47); MONOCYTES PERCENT AUTO 9 % (4-13); Mean Corpuscular HGB 31.2 pg (26.0-34.0); Mean Corpuscular HGB Conc 33.8 g/dL (31.5-36.5); Mean Corpuscular Volume 92 fL (80-100); Mean Platelet Volume 9.7 fL (9.1-12.4); NEUTROPHILS ABSOLUTE AUTO 8.83 K/mm3 (1.96-9.15); NEUTROPHILS PERCENT AUTO 64 % (41-73); Platelet Count 429 K/mm3 (150-400); RDW Standard Deviation 50.7 fL (35.1-46.3); Red Blood Cell Count 3.75 M/mm3 (3.80-5.20); White Blood Cell Count 13.79 K/mm3 (4.00-11.30)
[2021-08-26 22:18] LABS: Source, Urine Clean Catch
[2021-08-26 22:22] LABS: Appearance, Urine Cloudy (Clear); Bilirubin, Urine Neg (Neg); Blood, Urine 5+ (Neg); Color, Urine Amber (P-Yellow); Glucose Qualitative, Urine Neg (Neg); Ketones, Urine Neg (Neg); Leukocyte Esterase, Urine 3+ (Neg); Nitrite, Urine Neg (Neg); Protein, Urine 3+ (Neg); Urobilinogen, Urine NORM (Normal)
[2021-08-26 22:28] LABS: Red Blood Cells, Urine TNTC /hpf (0-2); White Blood Cells, Urine TNTC /hpf (0-5)
[2021-08-26 22:29] LABS: Bacteria Many /hpf; Squamous Epithelial Cells Not Seen /hpf (Few)
[2021-08-26 22:41] LABS: Alanine Aminotransfer (ALT/SGP 23 U/L (12-78); Albumin, Blood 3.4 g/dL (3.4-5.0); Albumin/Globulin Ratio 0.9 (0.8-1.8); Alk Phos 66 U/L (50-136); Anion Gap 4 mmol/L (6-16); Aspartate Aminotrans (AST/SGOT 18 U/L (12-37); Bilirubin, Total 0.2 mg/dL (0.1-1.0); Blood Urea Nitrogen 22 mg/dL (8-24); Bun/Creatinine Ratio 27.2 (12.0-20.0); CO2, Blood 24 mmol/L (21-32); Calcium, Blood 9.1 mg/dL (8.5-10.1); Chloride, Blood 111 mmol/L (98-108); Creatinine, Blood 0.81 mg/dL (0.40-1.00); Globulin, Blood 3.6 g/dL (2.2-4.0); Glomerular Filtration Rate >60 (60-); Glucose, Blood 90 mg/dL (70-99); Sodium, Blood 139 mmol/L (136-145)
[2021-08-26] MEDS ORDERED: Cephalexin250 MG/5 M PO (23:55)
== END 2021-08-27 00:15 | disposition home or self-care (01) ==
LOC: ER 21:13
PROVIDERS: Physician Assistant
DX: N12 Tubulo-interstitial nephritis, not specified as acute or chronic (principal); E03.9 Hypothyroidism, unspecified; Z88.8 Allergy status to other drugs, medicaments and biological substances; Z91.030 Bee allergy status; Z88.5 Allergy status to narcotic agent; Z79.899 Other long term (current) drug therapy
CPT/HCPCS: 36415; 74176; 80053; 81001; 85025; 87077; 87086; 87186; 99284-25; J0696; J1885

== ENCOUNTER → 2021-09-03 | Outpatient (CLI) | payer OTHER ==
[2021-09-03 14:27] LABS: BASOPHILS ABSOLUTE AUTO 0.06 K/mm3 (0.00-0.23); BASOPHILS PERCENT AUTO 1 % (0-2); EOSINOPHILS ABSOLUTE AUTO 0.02 K/mm3 (0.00-0.68); EOSINOPHILS PERCENT AUTO 0 % (0-6); Hematocrit 36.8 % (33.0-51.0); Hemoglobin 12.4 g/dL (11.5-16.0); IMMATURE GRAN ABSOLUTE AUTO 0.03 K/mm3 (0.00-0.10); IMMATURE GRAN PERCENT AUTO 0 % (0-1); LYMPHOCYTES ABSOLUTE AUTO 1.52 K/mm3 (0.84-5.20); LYMPHOCYTES PERCENT AUTO 22 % (21-46); MONOCYTES ABSOLUTE AUTO 1.38 K/mm3 (0.16-1.47); MONOCYTES PERCENT AUTO 20 % (4-13); Mean Corpuscular HGB 30.8 pg (26.0-34.0); Mean Corpuscular HGB Conc 33.7 g/dL (31.5-36.5); Mean Corpuscular Volume 91 fL (80-100); NEUTROPHILS ABSOLUTE AUTO 3.91 K/mm3 (1.96-9.15); NEUTROPHILS PERCENT AUTO 57 % (41-73); Platelet Count 321 K/mm3 (150-400); RDW Coefficient Variation 15.7 % (11.7-14.2); RDW Standard Deviation 52.6 fL (35.1-46.3); Red Blood Cell Count 4.03 M/mm3 (3.80-5.20); White Blood Cell Count 6.92 K/mm3 (4.00-11.30)
[2021-09-03 14:37] LABS: Alanine Aminotransfer (ALT/SGP 23 U/L (12-78); Albumin, Blood 3.7 g/dL (3.4-5.0); Alk Phos 70 U/L (40-126); Anion Gap 12 mmol/L (6-16); Aspartate Aminotrans (AST/SGOT 17 U/L (12-37); Bilirubin, Total 0.1 mg/dL (0.1-1.0); Blood Urea Nitrogen 13 mg/dL (8-24); Bun/Creatinine Ratio 14.1 (12.0-20.0); CO2, Blood 23 mmol/L (21-32); Chloride, Blood 103 mmol/L (98-108); Creatinine, Blood 0.92 mg/dL (0.40-1.00); Globulin, Blood 3.6 g/dL (2.2-4.0); Glomerular Filtration Rate >60 (60-); Glucose, Blood 94 mg/dL (70-99); Potassium, Blood 3.9 mmol/L (3.5-5.5); Sodium, Blood 138 mmol/L (136-145); Total Protein, Blood 7.3 g/dL (6.4-8.2)
== END ==
LOC: LAB SHORT 14:22 → LAB 14:22
PROVIDERS: General Practice
DX: U07.1 COVID-19 (principal); Z88.5 Allergy status to narcotic agent; Z88.8 Allergy status to other drugs, medicaments and biological substances; Z91.038 Other insect allergy status
CPT/HCPCS: 80053; 85025; 85379

== ENCOUNTER → 2021-12-05 | Outpatient (CLI) | payer OTHER | LOC: LAB SHORT 10:15 → LAB 10:15 | DX: Z08 Encounter for follow-up examination after completed treatment for malignant neoplasm (principal); L08.9 Local infection of the skin and subcutaneous tissue, unspecified; Z85.828 Personal history of other malignant neoplasm of skin | CPT/HCPCS: 87070; 87077; 87147; 87186; 87205 ==

== ENCOUNTER 2022-02-08 20:30 | Emergency (ER) | payer OTHER ==
[~2022-02-08] VITALS: Ht 167.6 cm; Wt 83.9 kg
== END 2022-02-09 04:44 | disposition home or self-care (01) ==
LOC: ER 20:30
DX: S39.91XA Unspecified injury of abdomen, initial encounter (principal); K94.23 Gastrostomy malfunction; Z88.8 Allergy status to other drugs, medicaments and biological substances; Z88.5 Allergy status to narcotic agent; Z91.030 Bee allergy status; Z79.899 Other long term (current) drug therapy; E03.9 Hypothyroidism, unspecified
CPT/HCPCS: 43762; 49465; 74160; 99283-25; Q9963; Q9967

== ENCOUNTER 2022-02-28 10:44 | Day surgery (SDC) | payer OTHER ==
[~2022-02-28] VITALS: Ht 167.6 cm; Wt 85.4 kg
--- NOTE | 2022-02-28 13:01 | NUR ---
02/28/22 1301 Sayra Lanza PT UPDATED OF THE DELAY IN HER CASE DUE TO PREVIOUS CASE GOING LONG. WARM BLANKET PROVIDED. NO OTHER NEEDS AT THIS TIME. CALL LIGHT IN REACH.
== END 2022-02-28 14:45 | disposition home or self-care (01) ==
LOC: ORSCSDS 10:44
DX: M77.11 Lateral epicondylitis, right elbow (principal); Z53.9 Procedure and treatment not carried out, unspecified reason
CPT/HCPCS: 82947; J0171; J0690; J7120

== ENCOUNTER 2022-03-07 11:40 | Day surgery (SDC) | payer OTHER ==
[~2022-03-07] VITALS: Ht 167.6 cm; Wt 84.5 kg
--- NOTE | 2022-03-07 14:09 | NUR ---
03/07/22 1409 Aviva Stanley 10CC OF 0.5% MARCAINE WITH EPI 1:200,000 INJECTED IN OR. EPI VERIFIED AND ADDED IN OR.
--- NOTE | 2022-03-07 15:23 | NUR ---
03/07/22 1523 ABUNDIO ESTRELLA PT MEDICATED WITH ONE DOSE OF FENTANYL IV (25 MCG) PER MD ORDER FOR PAIN. PT EDUCATED ON TYPES OF PAIN MEDICINE, ONSET, DURATION OF EFFECT, ETC. PT OPTED TO ALSO TAKE OFFERED TABLET OF PERCOCET PER MD ORDERS FOR POST OP PAIN. PT REQUESTED LIQUID TRAMADOL DUE TO GASTROSTOMY TUBE PRESENT AND DIFFICULTY SOMETIMES TOLERATING PO MEDICATIONS. DR. RIGGS CONTACTED, LEFT FOR HER WITH REWQUEST FOR CALL BACK. ADVISED PT OF THIS AND DISCUSSED PLAN TO TAKE ORAL MEDICINE HERE, AND DESK MAKER ORAL TABLETS OF TRAMADOL SO SHE HAS THAT ON HAND. SHE DOES HAVE LIQUID TYLENOL AT HOME ON HAND. PT AGREEABLE WITH PLAN
== END 2022-03-07 15:23 | disposition home or self-care (01) ==
LOC: ORSCSDS 11:40
PROVIDERS: Orthopaedic Surgery
PROC: 0JBD0ZZ Excision of Right Upper Arm Subcutaneous Tissue and Fascia, Open Approach (ICD-10-PCS; principal; 2022-03-07 13:00)
PROC: 0LN30ZZ Release Right Upper Arm Tendon, Open Approach (ICD-10-PCS; principal; 2022-03-07 13:00)
DX: M77.11 Lateral epicondylitis, right elbow (principal); I10 Essential (primary) hypertension; E11.9 Type 2 diabetes mellitus without complications; Z98.84 Bariatric surgery status; E16.2 Hypoglycemia, unspecified; Z85.71 Personal history of Hodgkin lymphoma; Z79.899 Other long term (current) drug therapy; Z79.01 Long term (current) use of anticoagulants; K21.9 Gastro-esophageal reflux disease without esophagitis
CPT/HCPCS: A9270; J0171; J0690; J1100; J1885; J2250; J2370; J2704; J3010

== ENCOUNTER → 2022-06-12 | Outpatient (CLI) | payer OTHER | END | disposition home or self-care (01) | LOC: LAB SHORT 12:53 → LAB 12:53 | DX: N39.0 Urinary tract infection, site not specified (principal) | CPT/HCPCS: 87077; 87086; 87186 ==

== ENCOUNTER 2022-08-09 19:00 | Inpatient (IN) | payer OTHER ==
[2022-08-08 09:48] LABS: BASOPHILS ABSOLUTE AUTO 0.08 K/mm3 (0.00-0.23); BASOPHILS PERCENT AUTO 1 % (0-2); EOSINOPHILS ABSOLUTE AUTO 0.09 K/mm3 (0.00-0.68); EOSINOPHILS PERCENT AUTO 1 % (0-6); Hematocrit 36.9 % (33.0-51.0); Hemoglobin 12.3 g/dL (11.5-16.0); IMMATURE GRAN ABSOLUTE AUTO 0.03 K/mm3 (0.00-0.10); IMMATURE GRAN PERCENT AUTO 0 % (0-1); LYMPHOCYTES ABSOLUTE AUTO 2.89 K/mm3 (0.84-5.20); LYMPHOCYTES PERCENT AUTO 34 % (21-46); MONOCYTES ABSOLUTE AUTO 0.86 K/mm3 (0.16-1.47); MONOCYTES PERCENT AUTO 10 % (4-13); Mean Corpuscular HGB 30.4 pg (26.0-34.0); Mean Corpuscular HGB Conc 33.3 g/dL (31.5-36.5); Mean Corpuscular Volume 91 fL (80-100); Mean Platelet Volume 9.9 fL (9.1-12.4); NEUTROPHILS ABSOLUTE AUTO 4.65 K/mm3 (1.96-9.15); NEUTROPHILS PERCENT AUTO 54 % (41-73); Platelet Count 365 K/mm3 (150-400); RDW Coefficient Variation 13.2 % (11.7-14.2); RDW Standard Deviation 43.9 fL (35.1-46.3); Red Blood Cell Count 4.04 M/mm3 (3.80-5.20)
[2022-08-08 10:33] LABS: Anion Gap 5 mmol/L (6-16); Beta HCG, Quantitative, Serum <1 mIU/mL (0-3); Blood Urea Nitrogen 17 mg/dL (8-24); Bun/Creatinine Ratio 20.6 (12.0-20.0); CO2, Blood 23 mmol/L (21-32); Calcium, Blood 9.4 mg/dL (8.5-10.1); Chloride, Blood 110 mmol/L (98-108); Creatinine, Blood 0.83 mg/dL (0.40-1.00); Glomerular Filtration Rate 89 (60-); Glucose, Blood 107 mg/dL (70-99); Potassium, Blood 4.3 mmol/L (3.5-5.5); Sodium, Blood 138 mmol/L (136-145)
[~2022-08-09] VITALS: Ht 167.6 cm; Wt 86.1 kg
--- NOTE | 2022-08-09 14:56 | NUR ---
08/09/22 1456 Daniel Zafar G-TUBE IN SITU. 2X2 AND TEGADERM PLACED OVER G-TUBE PRIOR TO PREPPING
[2022-08-10 05:25] LABS: BASOPHILS ABSOLUTE AUTO 0.05 K/mm3 (0.00-0.23); BASOPHILS PERCENT AUTO 0 % (0-2); EOSINOPHILS ABSOLUTE AUTO 0.05 K/mm3 (0.00-0.68); EOSINOPHILS PERCENT AUTO 0 % (0-6); Hematocrit 29.7 % (33.0-51.0); Hemoglobin 10.1 g/dL (11.5-16.0); IMMATURE GRAN ABSOLUTE AUTO 0.09 K/mm3 (0.00-0.10); IMMATURE GRAN PERCENT AUTO 1 % (0-1); LYMPHOCYTES ABSOLUTE AUTO 2.07 K/mm3 (0.84-5.20); LYMPHOCYTES PERCENT AUTO 12 % (21-46); MONOCYTES ABSOLUTE AUTO 1.79 K/mm3 (0.16-1.47); MONOCYTES PERCENT AUTO 10 % (4-13); Mean Corpuscular HGB 31.6 pg (26.0-34.0); Mean Corpuscular Volume 93 fL (80-100); Mean Platelet Volume 9.8 fL (9.1-12.4); NEUTROPHILS ABSOLUTE AUTO 13.11 K/mm3 (1.96-9.15); NEUTROPHILS PERCENT AUTO 76 % (41-73); Platelet Count 285 K/mm3 (150-400); RDW Coefficient Variation 13.2 % (11.7-14.2); RDW Standard Deviation 44.7 fL (35.1-46.3); White Blood Cell Count 17.16 K/mm3 (4.00-11.30)
--- NOTE | 2022-08-10 11:38 | NUR ---
PT STATES SHE IS HAVING PAIN AND BURNING WITH VOIDING, WITH LITTLE OUTPUT. SHE HAS HAD TO POST CATHETER VOIDS. BLADDER SCAN TAKEN IN TO MAKE SURE BLADDER IS BE EMPTIED. BLADDER SCANNER SHOWED 17ML. PT ENCOURAGED TO DRINK MORE WATER.
--- NOTE | 2022-08-10 11:56 | NUR ---
DR. SINGH CALLED AND MESSAGE LEFT REGARDING ANTIBIOTICS AND END DATE/TIME. AWAITING CALL BACK.
--- NOTE | 2022-08-10 13:32 | NUR ---
DR. SINGH CALLED AND STATED TO D/C ANTIBIOTIC ORDER ONCE 4 DOSES WERE GIVEN. 4 DOSES HAVE BEEN GIVEN AND ORDER DISCONTINUED.
--- NOTE | 2022-08-10 15:49 | NUR ---
VERBAL ORDER FROM DR. SINGH TO PLACE BINDER AND CHANGE LOVENOX ORDER TO 40MG LOVENOX SC BID.
--- NOTE | 2022-08-11 20:12 | NUR ---
1950-pt calls this content writer to room and reports bleeding from incision while in shower. Noted tissue adhesive is pulling away from skin more on right side of incision and sero/sang drainage is increased from earlier assessment. Provider notified by phone and orders to reinforce site with steri strips, gauze and adhesive pressure dressing after holding pressure for a few minutes. Drainage decreased after holding pressure with sterile gauze for a few minutes. Charge nurse Yojana Monet RN called to bedside to assist with dressing reinforcement. Dressing applied as ordered, and abdominal binder secured. Pt tolerates well. Will continue to monitor
--- NOTE | 2022-08-12 13:17 | NUR ---
08-12-22 1300 pt c/o tape from incision making her leg itchy and has a slightly redened rash. incision appears dry with steristrips in place, yet 3 steristrips on the right side slightly loose and may need to be reinforced
--- NOTE | 2022-08-12 14:59 | NUR ---
1430 4 steristrips at left side of incision removed and replaced. small 4x4 and telfa dressing applied only to left edge of incision. 1450 pt up to bathroom and called for assistance jose she was dripping pink serous drainage that had saturated dressing and dripped onto floor. [address] Salmon, left voicemail
--- NOTE | 2022-08-13 03:11 | NUR ---
Pt states that she passed "a little bit" of delmar
== END 2022-08-13 12:30 | disposition home or self-care (01) | DRG 743 ==
LOC: BC 19:00 → ORSCMMR 19:00 → BC 19:31 → ORSCMMR 08-10 16:05 → BC 08-10 16:05 → ORSCMMR 08-10 16:36 → SURS 08-13 12:14 → BC 08-13 12:19
PROVIDERS: ADMIT Obstetrics & Gynecology
PROC: 0UT70ZZ Resection of Bilateral Fallopian Tubes, Open Approach (ICD-10-PCS; 2022-08-09)
PROC: 8E0W0CZ Robotic Assisted Procedure of Trunk Region, Open Approach (ICD-10-PCS; 2022-08-09)
PROC: 0UT90ZZ Resection of Uterus, Open Approach (ICD-10-PCS; principal; 2022-08-09 13:00)
PROC: 0UJD4ZZ Inspection of Uterus and Cervix, Percutaneous Endoscopic Approach (ICD-10-PCS; 2022-08-09 13:00)
DX: D25.9 Leiomyoma of uterus, unspecified (principal); N92.1 Excessive and frequent menstruation with irregular cycle; N94.6 Dysmenorrhea, unspecified; N85.2 Hypertrophy of uterus; I10 Essential (primary) hypertension; E03.9 Hypothyroidism, unspecified; E78.5 Hyperlipidemia, unspecified; E11.43 Type 2 diabetes mellitus with diabetic autonomic (poly)neuropathy; K31.84 Gastroparesis; Z86.718 Personal history of other venous thrombosis and embolism; Z98.51 Tubal ligation status; Z86.711 Personal history of pulmonary embolism; Z90.49 Acquired absence of other specified parts of digestive tract; Z90.89 Acquired absence of other organs; Z98.890 Other specified postprocedural states; Z88.8 Allergy status to other drugs, medicaments and biological substances; Z79.899 Other long term (current) drug therapy
CPT/HCPCS: 36415; 80048; 84702; 85025; 86850; 86900; 86901; 88307; A9270; J0690; J1100; J1170; J1650; J1885; J2250; J2370; J2550; J2704; J2710; J2765; J3010; J7120

== ENCOUNTER 2022-08-17 20:37 | Emergency (ER) | payer OTHER ==
[~2022-08-17] VITALS: Ht 167.6 cm; Wt 83.0 kg
== END 2022-08-18 02:17 | disposition home or self-care (01) ==
LOC: ER 20:37
DX: T81.31XA Disruption of external operation (surgical) wound, not elsewhere classified, initial encounter (principal); E03.9 Hypothyroidism, unspecified; Z79.890 Hormone replacement therapy; Z79.899 Other long term (current) drug therapy; Z88.5 Allergy status to narcotic agent; Z88.8 Allergy status to other drugs, medicaments and biological substances; Z91.030 Bee allergy status; Y83.8 Other surgical procedures as the cause of abnormal reaction of the patient, or of later complication, without mention of misadventure at the time of the procedure
CPT/HCPCS: 12020; 99283-25

== ENCOUNTER 2022-09-01 16:12 | Observation (INO) | payer OTHER ==
[~2022-09-01] VITALS: Ht 167.6 cm; Wt 85.3 kg
[~2022-09-01 16:12] MED LIST changes: -ENOX40I SC
[2022-09-01] MEDS ORDERED: ENOX40I SC (23:26)
[2022-09-02 05:55] LABS: BASOPHILS ABSOLUTE AUTO 0.07 K/mm3 (0.00-0.23); BASOPHILS PERCENT AUTO 1 % (0-2); EOSINOPHILS ABSOLUTE AUTO 0.35 K/mm3 (0.00-0.68); EOSINOPHILS PERCENT AUTO 5 % (0-6); Hematocrit 32.3 % (33.0-51.0); Hemoglobin 10.7 g/dL (11.5-16.0); IMMATURE GRAN ABSOLUTE AUTO 0.02 K/mm3 (0.00-0.10); IMMATURE GRAN PERCENT AUTO 0 % (0-1); LYMPHOCYTES ABSOLUTE AUTO 3.63 K/mm3 (0.84-5.20); LYMPHOCYTES PERCENT AUTO 47 % (21-46); MONOCYTES ABSOLUTE AUTO 1.01 K/mm3 (0.16-1.47); MONOCYTES PERCENT AUTO 13 % (4-13); Mean Corpuscular HGB 30.3 pg (26.0-34.0); Mean Corpuscular HGB Conc 33.1 g/dL (31.5-36.5); Mean Corpuscular Volume 92 fL (80-100); Mean Platelet Volume 9.7 fL (9.1-12.4); NEUTROPHILS ABSOLUTE AUTO 2.65 K/mm3 (1.96-9.15); NEUTROPHILS PERCENT AUTO 34 % (41-73); Platelet Count 426 K/mm3 (150-400); RDW Coefficient Variation 13.2 % (11.7-14.2); RDW Standard Deviation 44.2 fL (35.1-46.3); Red Blood Cell Count 3.53 M/mm3 (3.80-5.20); White Blood Cell Count 7.73 K/mm3 (4.00-11.30)
--- NOTE | 2022-09-02 11:25 | NUR ---
WONDERLY IN TO SEE PT AND TALK ABOUT PLAN OF CARE.
--- NOTE | 2022-09-02 12:00 | NUR ---
REPORT GIVEN TO SURGICAL FLOOR. PT TO BE TRANSFERRED TO ROOM 208.
--- NOTE | 2022-09-02 12:26 | NUR ---
PT TRANSFERRED FROM [facility] INTO [facility]. A&OX4, VSS/RA, RAMY PO, AMB IND IN ROOM, PAIN MANAGED, ORDERED REG DIET LUNCH PER REPORT FROM LUIS THAT PT MAY EAT PER
--- NOTE | 2022-09-02 12:29 | NUR ---
PT TAKEN TO ROOM 208 AND REPORT GIVEN TO FRANCHESKA SEGURA AT 1215.
--- NOTE | 2022-09-02 16:10 | NUR ---
SHIFT SUMMARY PT A&OX4, VSS/RA, RAMY PO, VOIDING, AMB INDEPENDENT, PAIN MANAGED WITH PERCOCET 5 MG. ABD INCISION WITH GAUZE/BINDER. PLAN FOR NPO MIDNIGHT FOR SURGICAL INTERVENTION TOMORROW. WILL REPORT TO ONCOMING NOC RN.
--- NOTE | 2022-09-03 05:45 | NUR ---
SHIFT SUMMARY PT A&OX4, PLEASANT AND COOPERATIVE. MEDICATED FOR PAIN ONCE THIS SHIFT. NPO SINCE MIDNIGHT. INCISION DRAINING SEROSANGUINEOUS FLUID, DANNA PROVIDED AT BEDSIDE, PT HAS BEEN CHANGING THEM OUT NEEDED. INDEPENDENT IN ROOM. SPOUSE AT BEDSIDE. SURGICAL PACKET AND SCRUB COMPLETE. CALLS APPROPRIATELY, CALL LIGHT WITHIN REACH. PLAN IS FOR AN I&D PROCEDURE LATER TODAY.
--- NOTE | 2022-09-03 10:58 | NUR ---
Upon receiving a referral for spiritual care, I visit pt. Pt is lying in bed and alert. Pt's spouse, Rodolfo is bedside. Pt tells me about her long medical history and major surgeries she has had. She shares about some significant spiritual experiences that occurred during recovery of one of her surgeries. I provide therapeutic listening, a calming presence and pre-procedure prayer. Both pt and Rodolfo respond well and show signs of increased peace. I will continue to remain available to pt and family.
--- NOTE | 2022-09-03 11:59 | NUR ---
PT TO DAY SURGERY VIA HILARIA
--- NOTE | 2022-09-03 12:50 | NUR ---
History, Chart, Medications and Allergies reviewed before start of procedure. Lungs clear T/O to Auscultation. Patient confirms NPO status and agrees with scheduled surgery. Pre-Op teaching done. Pt verbalizes understanding.
--- NOTE | 2022-09-03 14:05 | NUR ---
POST OP ARRIVES TO ROOM & SCOOTS SELF FROM GOURNEY TO BED. PLEASANT, ALERT. DENIES N/V, PAIN, SOB. VSS. LLQ UNDER PANNUS HAS BULKY DRSG w/ MEFIX TAPE OVER. NO DRNG OR SHADOWING NOTED. ABD SOFT. CLEAR LQ's GIVEN.
--- NOTE | 2022-09-03 16:45 | NUR ---
DISCHARGE INFO DISCUSSED. WAITING FOR RIDE.
--- NOTE | 2022-09-03 18:27 | NUR ---
DISCHARGE EATING, DRINKING, VOIDING. DENIES PAIN. AMBULATING EASILY. RIDE ARRIVED SO ESCORTED OUT VIA WC TO PRIVATE CAR.
== END 2022-09-03 18:30 | disposition home or self-care (01) ==
LOC: ER 16:12 → SURS 16:13 → BC 23:19 → SURS 09-02 12:16
PROVIDERS: Emergency Medicine; ADMIT Obstetrics & Gynecology
DX: L76.34 Postprocedural seroma of skin and subcutaneous tissue following other procedure (principal); T81.31XA Disruption of external operation (surgical) wound, not elsewhere classified, initial encounter; E03.9 Hypothyroidism, unspecified; I10 Essential (primary) hypertension; Y83.8 Other surgical procedures as the cause of abnormal reaction of the patient, or of later complication, without mention of misadventure at the time of the procedure; Z90.710 Acquired absence of both cervix and uterus; Z98.84 Bariatric surgery status; Z88.8 Allergy status to other drugs, medicaments and biological substances; Z88.5 Allergy status to narcotic agent; Z91.030 Bee allergy status; Z86.718 Personal history of other venous thrombosis and embolism; Z79.01 Long term (current) use of anticoagulants; Z86.711 Personal history of pulmonary embolism
CPT/HCPCS: 36415; 82947; 85025; 87070; 87075; 87076; 87205; 96361; 96374; 99284-25; A9270; G0378; J0690; J1100; J1170; J1885; J2250; J2405; J2704; J2765; J3010; J7120

== ENCOUNTER → 2022-09-01 | Outpatient (CLI) | payer OTHER ==
[~2022-09-01] MED LIST changes: +ENOX40I SC; -OMEP20ER; -VITAMIN D5000 UNIT; +VITAMIN D5000 UNIT PO
[2022-09-01 14:30] LABS: BASOPHILS ABSOLUTE AUTO 0.08 K/mm3 (0.00-0.23); BASOPHILS PERCENT AUTO 1 % (0-2); EOSINOPHILS ABSOLUTE AUTO 0.21 K/mm3 (0.00-0.68); EOSINOPHILS PERCENT AUTO 2 % (0-6); Hematocrit 35.4 % (33.0-51.0); Hemoglobin 11.9 g/dL (11.5-16.0); IMMATURE GRAN ABSOLUTE AUTO 0.04 K/mm3 (0.00-0.10); IMMATURE GRAN PERCENT AUTO 0 % (0-1); LYMPHOCYTES ABSOLUTE AUTO 3.13 K/mm3 (0.84-5.20); LYMPHOCYTES PERCENT AUTO 29 % (21-46); MONOCYTES ABSOLUTE AUTO 1.26 K/mm3 (0.16-1.47); MONOCYTES PERCENT AUTO 12 % (4-13); Mean Corpuscular HGB Conc 33.6 g/dL (31.5-36.5); Mean Corpuscular Volume 92 fL (80-100); Mean Platelet Volume 9.7 fL (9.1-12.4); NEUTROPHILS ABSOLUTE AUTO 6.11 K/mm3 (1.96-9.15); NEUTROPHILS PERCENT AUTO 57 % (41-73); Platelet Count 447 K/mm3 (150-400); RDW Coefficient Variation 13.3 % (11.7-14.2); RDW Standard Deviation 45.1 fL (35.1-46.3); Red Blood Cell Count 3.84 M/mm3 (3.80-5.20); White Blood Cell Count 10.83 K/mm3 (4.00-11.30)
[2022-09-01 16:02] LABS: Albumin, Blood 3.2 g/dL (3.4-5.0); Albumin/Globulin Ratio 0.8 (0.8-1.8); Bilirubin, Total 0.3 mg/dL (0.1-1.0); Bun/Creatinine Ratio 23.1 (12.0-20.0); Calcium, Blood 9.1 mg/dL (8.5-10.1); Creatinine, Blood 0.65 mg/dL (0.40-1.00); Globulin, Blood 3.9 g/dL (2.2-4.0); Potassium, Blood 4.1 mmol/L (3.5-5.5); Total Protein, Blood 7.1 g/dL (6.4-8.2)
== END | disposition home or self-care (01) ==
LOC: LAB 14:25 → LAB SHORT 14:25
PROVIDERS: Physician Assistant
DX: R10.9 Unspecified abdominal pain (principal)
CPT/HCPCS: 80053; 85025

== ENCOUNTER 2022-09-06 03:19 | Day surgery (SDC) | payer OTHER ==
[~2022-09-06 03:19] MED LIST changes: +ENOX40I SC
== END 2022-09-06 22:44 | disposition home or self-care (01) ==
LOC: WOUND 03:19
DX: T81.32XA Disruption of internal operation (surgical) wound, not elsewhere classified, initial encounter (principal); L02.211 Cutaneous abscess of abdominal wall
CPT/HCPCS: G0463

== ENCOUNTER 2022-09-06 03:46 | Day surgery (SDC) | payer OTHER | END 2022-09-06 12:04 | disposition home or self-care (01) | LOC: ATC 03:46 | DX: R79.0 Abnormal level of blood mineral (principal); I10 Essential (primary) hypertension; E78.5 Hyperlipidemia, unspecified; Z98.84 Bariatric surgery status; Z86.39 Personal history of other endocrine, nutritional and metabolic disease; Z86.711 Personal history of pulmonary embolism; Z79.01 Long term (current) use of anticoagulants | CPT/HCPCS: 96365; J2916 ==

== ENCOUNTER 2022-09-11 20:14 | Emergency (ER) | payer OTHER ==
[~2022-09-11] VITALS: Ht 167.6 cm; Wt 83.9 kg
[2022-09-11 22:43] LABS: BASOPHILS ABSOLUTE AUTO 0.06 K/mm3 (0.00-0.23); BASOPHILS PERCENT AUTO 1 % (0-2); EOSINOPHILS ABSOLUTE AUTO 0.42 K/mm3 (0.00-0.68); EOSINOPHILS PERCENT AUTO 5 % (0-6); Hematocrit 32.2 % (33.0-51.0); IMMATURE GRAN ABSOLUTE AUTO 0.03 K/mm3 (0.00-0.10); IMMATURE GRAN PERCENT AUTO 0 % (0-1); LYMPHOCYTES ABSOLUTE AUTO 3.37 K/mm3 (0.84-5.20); LYMPHOCYTES PERCENT AUTO 39 % (21-46); MONOCYTES ABSOLUTE AUTO 1.18 K/mm3 (0.16-1.47); MONOCYTES PERCENT AUTO 14 % (4-13); Mean Corpuscular HGB 31.1 pg (26.0-34.0); Mean Corpuscular HGB Conc 34.2 g/dL (31.5-36.5); Mean Corpuscular Volume 91 fL (80-100); Mean Platelet Volume 9.7 fL (9.1-12.4); NEUTROPHILS ABSOLUTE AUTO 3.67 K/mm3 (1.96-9.15); NEUTROPHILS PERCENT AUTO 42 % (41-73); Platelet Count 349 K/mm3 (150-400); RDW Coefficient Variation 13.5 % (11.7-14.2); RDW Standard Deviation 45.2 fL (35.1-46.3); Red Blood Cell Count 3.54 M/mm3 (3.80-5.20); White Blood Cell Count 8.73 K/mm3 (4.00-11.30)
[2022-09-11 23:12] LABS: Alanine Aminotransfer (ALT/SGP 16 U/L (12-78); Albumin/Globulin Ratio 0.8 (0.8-1.8); Alk Phos 80 U/L (50-136); Anion Gap 6 mmol/L (6-16); Aspartate Aminotrans (AST/SGOT 12 U/L (12-37); Bilirubin, Total <0.1 mg/dL (0.1-1.0); Blood Urea Nitrogen 19 mg/dL (8-24); Bun/Creatinine Ratio 28.5 (12.0-20.0); CO2, Blood 24 mmol/L (21-32); Calcium, Blood 8.7 mg/dL (8.5-10.1); Chloride, Blood 110 mmol/L (98-108); Creatinine, Blood 0.67 mg/dL (0.40-1.00); Globulin, Blood 3.7 g/dL (2.2-4.0); Glomerular Filtration Rate 110 (60-); Glucose, Blood 107 mg/dL (70-99); Potassium, Blood 4.1 mmol/L (3.5-5.5); Sodium, Blood 140 mmol/L (136-145); Total Protein, Blood 6.7 g/dL (6.4-8.2)
== END 2022-09-12 00:29 | disposition home or self-care (01) ==
LOC: ER 20:14
PROVIDERS: Student in an Organized Health Care Education/Training Program
DX: T81.41XA Infection following a procedure, superficial incisional surgical site, initial encounter (principal); L02.211 Cutaneous abscess of abdominal wall; E03.9 Hypothyroidism, unspecified; Z88.5 Allergy status to narcotic agent; Z88.8 Allergy status to other drugs, medicaments and biological substances; Z91.030 Bee allergy status; Z79.899 Other long term (current) drug therapy
CPT/HCPCS: 74177; 80053; 83605; 85025; J3370; Q9967

== ENCOUNTER 2022-09-14 01:00 | Day surgery (SDC) | payer OTHER | END 2022-09-14 23:09 | disposition home or self-care (01) | LOC: WOUND 01:00 | DX: T81.32XA Disruption of internal operation (surgical) wound, not elsewhere classified, initial encounter (principal); L02.211 Cutaneous abscess of abdominal wall | CPT/HCPCS: G0463 ==

== ENCOUNTER 2022-09-19 01:21 | Day surgery (SDC) | payer OTHER | END 2022-09-19 23:02 | disposition home or self-care (01) | LOC: WOUND 01:21 | DX: L02.211 Cutaneous abscess of abdominal wall (principal); S31.109S Unspecified open wound of abdominal wall, unspecified quadrant without penetration into peritoneal cavity, sequela; Z90.710 Acquired absence of both cervix and uterus; Z85.72 Personal history of non-Hodgkin lymphomas; Z98.84 Bariatric surgery status | CPT/HCPCS: A9270; G0463 ==

== ENCOUNTER → 2022-11-12 | Outpatient (CLI) | payer OTHER | END | disposition home or self-care (01) | LOC: LAB SHORT 11:52 → LAB 11:52 → PLD 11:52 | DX: M24.021 Loose body in right elbow (principal); M79.5 Residual foreign body in soft tissue | CPT/HCPCS: 88304 ==

== ENCOUNTER 2023-02-01 18:35 | Observation (INO) | payer OTHER ==
[~2023-02-01] VITALS: Ht 167.6 cm; Wt 86.2 kg
[~2023-02-01 18:35] MED LIST changes: -SUCR1 PO
[2023-02-01 20:03] LABS: BASOPHILS ABSOLUTE AUTO 0.09 K/mm3 (0.00-0.23); BASOPHILS PERCENT AUTO 1 % (0-2); EOSINOPHILS PERCENT AUTO 1 % (0-6); Hematocrit 37.6 % (33.0-51.0); Hemoglobin 12.8 g/dL (11.5-16.0); IMMATURE GRAN ABSOLUTE AUTO 0.06 K/mm3 (0.00-0.10); IMMATURE GRAN PERCENT AUTO 0 % (0-1); LYMPHOCYTES ABSOLUTE AUTO 2.59 K/mm3 (0.84-5.20); LYMPHOCYTES PERCENT AUTO 18 % (21-46); MONOCYTES ABSOLUTE AUTO 1.23 K/mm3 (0.16-1.47); MONOCYTES PERCENT AUTO 9 % (4-13); Mean Corpuscular Volume 94 fL (80-100); NEUTROPHILS ABSOLUTE AUTO 10.36 K/mm3 (1.96-9.15); NEUTROPHILS PERCENT AUTO 72 % (41-73); Platelet Count 358 K/mm3 (150-400); RDW Coefficient Variation 14.4 % (11.7-14.2); RDW Standard Deviation 50.4 fL (35.1-46.3); White Blood Cell Count 14.43 K/mm3 (4.00-11.30)
[2023-02-01 20:21] LABS: Albumin, Blood 3.6 g/dL (3.4-5.0); Bilirubin, Total 0.2 mg/dL (0.1-1.0); Bun/Creatinine Ratio 23.2 (12.0-20.0); Calcium, Blood 9.1 mg/dL (8.5-10.1); Creatinine, Blood 0.69 mg/dL (0.40-1.00); Globulin, Blood 3.6 g/dL (2.2-4.0); Potassium, Blood 4.4 mmol/L (3.5-5.5); Total Protein, Blood 7.2 g/dL (6.4-8.2)
[2023-02-01] MEDS ORDERED: TOPI100 PO (23:18)
[2023-02-02] MEDS ORDERED: Synthroid300 MCG PO (01:02)
[2023-02-02] MEDS ORDERED: SUCR1 PO (01:02)
[2023-02-02 05:08] LABS: BASOPHILS ABSOLUTE AUTO 0.07 K/mm3 (0.00-0.23); BASOPHILS PERCENT AUTO 1 % (0-2); EOSINOPHILS ABSOLUTE AUTO 0.15 K/mm3 (0.00-0.68); EOSINOPHILS PERCENT AUTO 2 % (0-6); Hematocrit 35.3 % (33.0-51.0); Hemoglobin 12.3 g/dL (11.5-16.0); IMMATURE GRAN ABSOLUTE AUTO 0.04 K/mm3 (0.00-0.10); IMMATURE GRAN PERCENT AUTO 1 % (0-1); LYMPHOCYTES ABSOLUTE AUTO 3.21 K/mm3 (0.84-5.20); LYMPHOCYTES PERCENT AUTO 37 % (21-46); MONOCYTES ABSOLUTE AUTO 0.91 K/mm3 (0.16-1.47); MONOCYTES PERCENT AUTO 11 % (4-13); Mean Corpuscular HGB 32.5 pg (26.0-34.0); Mean Corpuscular HGB Conc 34.8 g/dL (31.5-36.5); Mean Corpuscular Volume 93 fL (80-100); Mean Platelet Volume 9.9 fL (9.1-12.4); NEUTROPHILS ABSOLUTE AUTO 4.28 K/mm3 (1.96-9.15); NEUTROPHILS PERCENT AUTO 49 % (41-73); Platelet Count 330 K/mm3 (150-400); RDW Coefficient Variation 14.3 % (11.7-14.2); RDW Standard Deviation 49.1 fL (35.1-46.3); Red Blood Cell Count 3.79 M/mm3 (3.80-5.20); White Blood Cell Count 8.66 K/mm3 (4.00-11.30)
--- NOTE | 2023-02-02 05:15 | NUR ---
PT IS A&O4, INDEPENDENT IN THE ROOM, RA, PEG TUBE INSERTION SITE SLIGHTLY YELLOW AND CRUSTY, NO GAUZE IN PLACE AROUND INSERTION SITE PER PT IT IRRITATES SKIN, PT IS NPO, NO COMPLAINTS OF PAIN OR DISCOMFORT THIS SHIFT, CONTINUE POC
[2023-02-02 05:34] LABS: Albumin, Blood 3.3 g/dL (3.4-5.0); Bilirubin, Total 0.4 mg/dL (0.1-1.0); Bun/Creatinine Ratio 27.9 (12.0-20.0); Creatinine, Blood 0.57 mg/dL (0.40-1.00); Globulin, Blood 3.3 g/dL (2.2-4.0); Potassium, Blood 3.6 mmol/L (3.5-5.5); Total Protein, Blood 6.6 g/dL (6.4-8.2)
[2023-02-02 13:06] LABS: Hematocrit 35.4 % (33.0-51.0); Hemoglobin 12.2 g/dL (11.5-16.0)
--- NOTE | 2023-02-02 17:18 | NUR ---
SHIFT SUMMARY NO ACUTE CHANGES DURING SHIFT. PT ALERT AND ORIENTED, CALLS APPROPRIATELY. PT NPO, NO C/O PAIN. REMAINS ON RA, INDEPENDENT IN ROOM. NS INFUSING AT 75ML/HR. HGB Q 6, NEXT DUE AT 1800, REMAINS STABLE. WILL CONTINUE TO MONITOR. CALL LIGHT WITHIN REACH.
[2023-02-02 18:12] LABS: Hemoglobin 11.6 g/dL (11.5-16.0)
[2023-02-03 05:05] LABS: Hemoglobin 11.5 g/dL (11.5-16.0)
[2023-02-03] MEDS ORDERED: OMEP20ER PO (11:32)
--- NOTE | 2023-02-03 11:46 | NUR ---
DISCHARGE SUMMARY DISCHARGE, FOLLOWUP, AND MEDICATION INSTRUCTIONS GIVEN TO PT. PT VOICED COMPLETE UNDERSTANDING AND HAS NO QUESTIONS AT THIS TIME. IV REMOVED WITH CATHETER TIP INTACT.
== END 2023-02-03 11:45 | disposition home or self-care (01) ==
LOC: ER 18:35 → ERHOLD 18:36 → MEDS 02-02 02:04
PROVIDERS: Internal Medicine; Student in an Organized Health Care Education/Training Program; ADMIT Student in an Organized Health Care Education/Training Program
DX: K94.21 Gastrostomy hemorrhage (principal); Y84.8 Other medical procedures as the cause of abnormal reaction of the patient, or of later complication, without mention of misadventure at the time of the procedure; E03.9 Hypothyroidism, unspecified; Z88.5 Allergy status to narcotic agent
CPT/HCPCS: 36415; 74018; 80053; 85014; 85018; 85025; 96361; 96374; 96376; 99285-25; A9270; C9113; G0378; J7030

== ENCOUNTER → 2023-02-08 | Outpatient (CLI) | payer OTHER ==
[~2023-02-08] MED LIST changes: +SUCR1 PO; +TOPI100 PO
== END | disposition home or self-care (01) ==
LOC: LAB SHORT 15:06
DX: R07.0 Pain in throat (principal)
CPT/HCPCS: 87081

== ENCOUNTER 2023-04-18 22:07 | Emergency (ER) | payer OTHER ==
[~2023-04-18] VITALS: Ht 167.6 cm; Wt 88.5 kg
[2023-04-18 22:15] VITALS: BP 157/98
== END 2023-04-18 23:57 | disposition home or self-care (01) ==
LOC: ER 22:07
DX: K64.4 Residual hemorrhoidal skin tags (principal); Z88.8 Allergy status to other drugs, medicaments and biological substances; Z91.030 Bee allergy status; Z88.5 Allergy status to narcotic agent; Z79.899 Other long term (current) drug therapy; E03.9 Hypothyroidism, unspecified
CPT/HCPCS: 99282; A9270

== ENCOUNTER 2023-04-23 23:44 | Emergency (ER) | payer OTHER ==
[~2023-04-23] VITALS: Ht 167.6 cm; Wt 88.5 kg
[2023-04-24 04:18] VITALS: BP 149/88
[2023-04-24] MEDS ORDERED: HYDCOR2.5C PR (04:20)
[2023-04-24] MEDS ORDERED: DOC250 PO (04:20)
== END 2023-04-24 04:30 | disposition home or self-care (01) ==
LOC: ER 23:44
DX: K64.5 Perianal venous thrombosis (principal); Z88.8 Allergy status to other drugs, medicaments and biological substances; Z91.030 Bee allergy status; Z88.5 Allergy status to narcotic agent; Z79.899 Other long term (current) drug therapy; E03.9 Hypothyroidism, unspecified
CPT/HCPCS: 10060; 99282-25

== ENCOUNTER 2023-07-18 16:13 | Emergency (ER) | payer OTHER ==
[~2023-07-18] VITALS: Ht 167.6 cm; Wt 87.1 kg
[~2023-07-18 16:13] MED LIST changes: +DOC250 PO; +HYDCOR2.5C PR
[2023-07-18 17:27] LABS: BASOPHILS ABSOLUTE AUTO 0.07 K/mm3 (0.00-0.23); BASOPHILS PERCENT AUTO 1 % (0-2); EOSINOPHILS ABSOLUTE AUTO 0.15 K/mm3 (0.00-0.68); EOSINOPHILS PERCENT AUTO 1 % (0-6); Hemoglobin 12.7 g/dL (11.5-16.0); IMMATURE GRAN ABSOLUTE AUTO 0.05 K/mm3 (0.00-0.10); IMMATURE GRAN PERCENT AUTO 0 % (0-1); LYMPHOCYTES ABSOLUTE AUTO 3.42 K/mm3 (0.84-5.20); LYMPHOCYTES PERCENT AUTO 30 % (21-46); MONOCYTES ABSOLUTE AUTO 1.16 K/mm3 (0.16-1.47); MONOCYTES PERCENT AUTO 10 % (4-13); Mean Corpuscular HGB 32.9 pg (26.0-34.0); Mean Corpuscular HGB Conc 35.3 g/dL (31.5-36.5); Mean Corpuscular Volume 93 fL (80-100); Mean Platelet Volume 10.2 fL (9.1-12.4); NEUTROPHILS ABSOLUTE AUTO 6.46 K/mm3 (1.96-9.15); NEUTROPHILS PERCENT AUTO 57 % (41-73); Platelet Count 335 K/mm3 (150-400); RDW Coefficient Variation 12.2 % (11.7-14.2); RDW Standard Deviation 41.9 fL (35.1-46.3); Red Blood Cell Count 3.86 M/mm3 (3.80-5.20); White Blood Cell Count 11.31 K/mm3 (4.00-11.30)
[2023-07-18 17:53] LABS: Albumin, Blood 3.4 g/dL (3.4-5.0); Albumin/Globulin Ratio 0.9 (0.8-1.8); Bilirubin, Total 0.3 mg/dL (0.1-1.0); Bun/Creatinine Ratio 32.5 (12.0-20.0); Calcium, Blood 9.6 mg/dL (8.5-10.1); Creatinine, Blood 0.77 mg/dL (0.40-1.00); Globulin, Blood 3.7 g/dL (2.2-4.0); Total Protein, Blood 7.1 g/dL (6.4-8.2)
[2023-07-18 20:44] VITALS: BP 143/86
== END 2023-07-18 20:57 | disposition home or self-care (01) ==
LOC: ER 16:13
PROVIDERS: Physician Assistant
DX: K29.70 Gastritis, unspecified, without bleeding (principal); K31.84 Gastroparesis; E03.9 Hypothyroidism, unspecified
CPT/HCPCS: 74177; 80053; 83690; 85025; 99284-25; Q9967

== ENCOUNTER → 2023-07-24 | Outpatient (CLI) | payer OTHER | LOC: LAB 09:20 → LAB SHORT 09:20 | DX: N39.0 Urinary tract infection, site not specified (principal) | CPT/HCPCS: 87077; 87086; 87186 ==

== ENCOUNTER 2023-08-06 19:35 | Emergency (ER) | payer OTHER ==
[~2023-08-06] VITALS: Ht 167.6 cm; Wt 88.5 kg
[2023-08-06 20:46] LABS: BASOPHILS ABSOLUTE AUTO 0.06 K/mm3 (0.00-0.23); BASOPHILS PERCENT AUTO 1 % (0-2); EOSINOPHILS ABSOLUTE AUTO 0.06 K/mm3 (0.00-0.68); EOSINOPHILS PERCENT AUTO 1 % (0-6); Hematocrit 37.4 % (33.0-51.0); IMMATURE GRAN ABSOLUTE AUTO 0.06 K/mm3 (0.00-0.10); IMMATURE GRAN PERCENT AUTO 1 % (0-1); LYMPHOCYTES ABSOLUTE AUTO 3.53 K/mm3 (0.84-5.20); LYMPHOCYTES PERCENT AUTO 29 % (21-46); MONOCYTES ABSOLUTE AUTO 0.96 K/mm3 (0.16-1.47); MONOCYTES PERCENT AUTO 8 % (4-13); Mean Corpuscular HGB 32.5 pg (26.0-34.0); Mean Corpuscular HGB Conc 34.8 g/dL (31.5-36.5); Mean Corpuscular Volume 94 fL (80-100); Mean Platelet Volume 10.1 fL (9.1-12.4); NEUTROPHILS ABSOLUTE AUTO 7.34 K/mm3 (1.96-9.15); NEUTROPHILS PERCENT AUTO 61 % (41-73); Platelet Count 344 K/mm3 (150-400); RDW Coefficient Variation 12.2 % (11.7-14.2); RDW Standard Deviation 42.5 fL (35.1-46.3); White Blood Cell Count 12.01 K/mm3 (4.00-11.30)
[2023-08-06 21:12] LABS: Albumin, Blood 3.9 g/dL (3.4-5.0); Albumin/Globulin Ratio 1.1 (0.8-1.8); Bilirubin, Total 0.3 mg/dL (0.1-1.0); Bun/Creatinine Ratio 26.4 (12.0-20.0); Calcium, Blood 9.6 mg/dL (8.5-10.1); Creatinine, Blood 0.83 mg/dL (0.40-1.00); Globulin, Blood 3.6 g/dL (2.2-4.0); Potassium, Blood 3.9 mmol/L (3.5-5.5); Total Protein, Blood 7.5 g/dL (6.4-8.2)
[2023-08-06 23:32] LABS: Hematocrit 35.2 % (33.0-51.0); Hemoglobin 12.2 g/dL (11.5-16.0)
[2023-08-07 02:39] VITALS: BP 135/78
[2023-08-07] MEDS ORDERED: TRAM50 PO (02:50)
[2023-08-07] MEDS ORDERED: METO5A PO (02:50)
== END 2023-08-07 03:05 | disposition home or self-care (01) ==
LOC: ER 19:35
PROVIDERS: Emergency Medicine; Physician Assistant
DX: K59.00 Constipation, unspecified (principal); E03.9 Hypothyroidism, unspecified; Z79.890 Hormone replacement therapy; Z79.899 Other long term (current) drug therapy; Z79.01 Long term (current) use of anticoagulants; Z98.84 Bariatric surgery status; Z88.8 Allergy status to other drugs, medicaments and biological substances; Z91.030 Bee allergy status; Z88.5 Allergy status to narcotic agent
CPT/HCPCS: 74177; 80053; 83690; 85014; 85018; 85025; 96374; 99283-25; A9270; J2765; Q9967

== ENCOUNTER 2023-09-04 10:39 | Day surgery (SDC) | payer OTHER ==
[~2023-09-04] VITALS: Ht 167.6 cm; Wt 90.1 kg
[~2023-09-04 10:39] MED LIST changes: +METO5A PO; +TRAM50 PO
--- NOTE | 2023-09-04 12:44 | NUR ---
09/04/23 1244 Aviva Stanley HEAD ON DONUT, PILLOW UNDER KNEES, ARMS TUCKED, SHOULDER ROLL, SAFETY BELT IN PLACE AND SECURE.
[2023-09-04 14:36] VITALS: BP 138/89
--- NOTE | 2023-09-04 15:16 | NUR ---
09/04/23 1516 Moe Cruz PT REPORTED TOLERABLE ITCHING ON FACE AND LIMBS. SHE DENIED RASH, DIFFICULTY BREATHING, OR DIZZINESS; AND NONE WERE OBSERVED. FRANCHESKA GARLAND CONSULTING DR. PAUL REGARDING ITCHING.
[2023-09-05] MEDS ORDERED: Calcium Carbon500 MG (18:40)
== END 2023-09-04 16:17 | disposition home or self-care (01) ==
LOC: ORSCSDS 10:39
PROVIDERS: Otolaryngology
PROC: 0GTG0ZZ Resection of Left Thyroid Gland Lobe, Open Approach (ICD-10-PCS; principal; 2023-09-04 12:00)
PROC: 0GTH0ZZ Resection of Right Thyroid Gland Lobe, Open Approach (ICD-10-PCS; principal; 2023-09-04 12:00)
DX: E04.1 Nontoxic single thyroid nodule (principal); E03.9 Hypothyroidism, unspecified; J38.00 Paralysis of vocal cords and larynx, unspecified; Z85.71 Personal history of Hodgkin lymphoma; I10 Essential (primary) hypertension; E78.5 Hyperlipidemia, unspecified; E11.9 Type 2 diabetes mellitus without complications; F41.9 Anxiety disorder, unspecified; Z79.899 Other long term (current) drug therapy
CPT/HCPCS: 82947; 88307; A9270; J1100; J2250; J2704; J2765; J3010; J7120

== ENCOUNTER 2023-09-05 18:15 | Emergency (ER) | payer OTHER ==
[~2023-09-05] VITALS: Ht 167.6 cm; Wt 88.5 kg
[~2023-09-05 18:15] MED LIST changes: -Calcium Carbon500 MG
[2023-09-05] MEDS ORDERED: Calcium Carbon500 MG (18:40)
[2023-09-05 19:02] LABS: BASOPHILS ABSOLUTE AUTO 0.09 K/mm3 (0.00-0.23); BASOPHILS PERCENT AUTO 1 % (0-2); EOSINOPHILS ABSOLUTE AUTO 0.32 K/mm3 (0.00-0.68); EOSINOPHILS PERCENT AUTO 2 % (0-6); Hemoglobin 11.3 g/dL (11.5-16.0); IMMATURE GRAN ABSOLUTE AUTO 0.06 K/mm3 (0.00-0.10); IMMATURE GRAN PERCENT AUTO 0 % (0-1); LYMPHOCYTES ABSOLUTE AUTO 3.99 K/mm3 (0.84-5.20); LYMPHOCYTES PERCENT AUTO 29 % (21-46); MONOCYTES ABSOLUTE AUTO 1.75 K/mm3 (0.16-1.47); MONOCYTES PERCENT AUTO 13 % (4-13); Mean Corpuscular HGB 32.4 pg (26.0-34.0); Mean Corpuscular HGB Conc 34.2 g/dL (31.5-36.5); Mean Corpuscular Volume 95 fL (80-100); Mean Platelet Volume 9.9 fL (9.1-12.4); NEUTROPHILS ABSOLUTE AUTO 7.51 K/mm3 (1.96-9.15); NEUTROPHILS PERCENT AUTO 55 % (41-73); Platelet Count 284 K/mm3 (150-400); RDW Coefficient Variation 12.8 % (11.7-14.2); RDW Standard Deviation 43.8 fL (35.1-46.3); Red Blood Cell Count 3.49 M/mm3 (3.80-5.20); White Blood Cell Count 13.72 K/mm3 (4.00-11.30)
[2023-09-05 19:27] LABS: Alanine Aminotransfer (ALT/SGP 19 U/L (12-78); Albumin, Blood 3.1 g/dL (3.4-5.0); Albumin/Globulin Ratio 0.9 (0.8-1.8); Alk Phos 59 U/L (50-136); Anion Gap 5 mmol/L (6-16); Aspartate Aminotrans (AST/SGOT 16 U/L (12-37); Bilirubin, Total <0.1 mg/dL (0.1-1.0); Blood Urea Nitrogen 20 mg/dL (8-24); CO2, Blood 25 mmol/L (21-32); Calcium, Blood 8.3 mg/dL (8.5-10.1); Chloride, Blood 110 mmol/L (98-108); Globulin, Blood 3.5 g/dL (2.2-4.0); Glomerular Filtration Rate 93 (60-); Glucose, Blood 100 mg/dL (70-99); Potassium, Blood 3.7 mmol/L (3.5-5.5); Sodium, Blood 140 mmol/L (136-145); Total Protein, Blood 6.6 g/dL (6.4-8.2)
[2023-09-05 20:16] VITALS: BP 160/107
== END 2023-09-05 20:15 | disposition home or self-care (01) ==
LOC: ER 18:15
PROVIDERS: Student in an Organized Health Care Education/Training Program
DX: R07.9 Chest pain, unspecified (principal); Z98.890 Other specified postprocedural states; Z88.8 Allergy status to other drugs, medicaments and biological substances; Z88.0 Allergy status to penicillin; Z91.030 Bee allergy status; Z88.5 Allergy status to narcotic agent; Z79.899 Other long term (current) drug therapy; E03.9 Hypothyroidism, unspecified; R00.2 Palpitations
CPT/HCPCS: 71045; 80053; 82330; 83735; 84439; 84443; 84481; 84484; 85025; 93005; 93010; 99285-25

== ENCOUNTER → 2023-09-05 | Outpatient (CLI) | payer OTHER ==
[~2023-09-05] MED LIST changes: +Calcium Carbon500 MG
== END ==
LOC: LAB 17:59 → LAB SHORT 17:59
DX: R07.89 Other chest pain (principal)
CPT/HCPCS: 82330

== ENCOUNTER 2023-11-22 21:55 | Emergency (ER) | payer OTHER ==
[~2023-11-22] VITALS: Ht 167.6 cm; Wt 95.2 kg
[~2023-11-22 21:55] MED LIST changes: +Calcium Carbon500 MG
[2023-11-22 22:45] LABS: Hematocrit 37.1 % (33.0-51.0); Hemoglobin 12.9 g/dL (11.5-16.0); Mean Corpuscular HGB 33.1 pg (26.0-34.0); Mean Corpuscular HGB Conc 34.8 g/dL (31.5-36.5); Mean Corpuscular Volume 95 fL (80-100); Mean Platelet Volume 10.6 fL (9.1-12.4); Platelet Count 313 K/mm3 (150-400); RDW Coefficient Variation 13.3 % (11.7-14.2); RDW Standard Deviation 46.8 fL (35.1-46.3)
[2023-11-22 23:01] LABS: White Blood Cell Count 8.57 K/mm3 (4.00-11.30)
[2023-11-22 23:08] LABS: Albumin, Blood 3.7 g/dL (3.4-5.0); Bilirubin, Total 0.2 mg/dL (0.1-1.0); Bun/Creatinine Ratio 21.7 (12.0-20.0); Calcium, Blood 9.2 mg/dL (8.5-10.1); Creatinine, Blood 0.97 mg/dL (0.40-1.00); Globulin, Blood 3.7 g/dL (2.2-4.0); Potassium, Blood 3.7 mmol/L (3.5-5.5); Total Protein, Blood 7.4 g/dL (6.4-8.2)
[2023-11-22 23:41] LABS: BASOPHILS ABSOLUTE MAN 0.08 K/mm3 (0.00-0.23); BASOPHILS PERCENT MAN 1 % (0-2); EOSINOPHILS ABSOLUTE MAN 0.25 K/mm3 (0.00-0.68); EOSINOPHILS PERCENT MAN 3 % (0-6); LYMPHOCYTES ABSOLUTE MAN 4.02 K/mm3 (0.84-5.20); LYMPHOCYTES PERCENT MAN 47 % (21-46); MONOCYTES ABSOLUTE MAN 0.51 K/mm3 (0.16-1.47); MONOCYTES PERCENT MAN 6 % (4-13); NEUTROPHILS ABSOLUTE MAN 3.68 K/mm3 (1.96-9.15); SEG NEUTROPHILS PERCENT MAN 43 % (41-73); TOTAL CELLS COUNTED 100
[2023-11-23 02:38] VITALS: BP 144/90
== END 2023-11-23 02:41 | disposition home or self-care (01) ==
LOC: ER 21:55
PROVIDERS: Physician Assistant
DX: K92.2 Gastrointestinal hemorrhage, unspecified (principal); E03.9 Hypothyroidism, unspecified; Z87.19 Personal history of other diseases of the digestive system; Z93.1 Gastrostomy status; Z79.899 Other long term (current) drug therapy; Z88.0 Allergy status to penicillin; Z88.5 Allergy status to narcotic agent; Z88.8 Allergy status to other drugs, medicaments and biological substances; Z91.030 Bee allergy status
CPT/HCPCS: 80053; 85025; 86850; 86900; 86901; 99284

== ENCOUNTER → 2023-12-19 | Outpatient (CLI) | payer OTHER ==
[2023-12-19 17:22] LABS: BASOPHILS PERCENT AUTO 1 % (0-2); EOSINOPHILS ABSOLUTE AUTO 0.09 K/mm3 (0.00-0.68); EOSINOPHILS PERCENT AUTO 1 % (0-6); Hemoglobin 14.4 g/dL (11.5-16.0); IMMATURE GRAN ABSOLUTE AUTO 0.05 K/mm3 (0.00-0.10); IMMATURE GRAN PERCENT AUTO 1 % (0-1); LYMPHOCYTES ABSOLUTE AUTO 3.58 K/mm3 (0.84-5.20); LYMPHOCYTES PERCENT AUTO 37 % (21-46); MONOCYTES ABSOLUTE AUTO 0.72 K/mm3 (0.16-1.47); MONOCYTES PERCENT AUTO 7 % (4-13); Mean Corpuscular HGB 32.4 pg (26.0-34.0); Mean Corpuscular HGB Conc 34.3 g/dL (31.5-36.5); Mean Corpuscular Volume 95 fL (80-100); Mean Platelet Volume 10.7 fL (9.1-12.4); NEUTROPHILS PERCENT AUTO 53 % (41-73); Platelet Count 336 K/mm3 (150-400); RDW Coefficient Variation 13.2 % (11.7-14.2); RDW Standard Deviation 45.7 fL (35.1-46.3); Red Blood Cell Count 4.44 M/mm3 (3.80-5.20); White Blood Cell Count 9.74 K/mm3 (4.00-11.30)
[2023-12-19 17:36] LABS: Albumin, Blood 4.4 g/dL (3.4-5.0); Bilirubin, Total 0.5 mg/dL (0.1-1.0); Calcium, Blood 10.3 mg/dL (8.5-10.1); Creatinine, Blood 1.16 mg/dL (0.40-1.00); Globulin, Blood 4.2 g/dL (2.2-4.0); Potassium, Blood 3.6 mmol/L (3.5-5.5); Total Protein, Blood 8.6 g/dL (6.4-8.2)
[2023-12-19 18:41] LABS: Free Thyroxine 0.31 ng/dL (0.70-1.60)
[2023-12-19 18:42] LABS: Thyroid Stimulating Hormone >100.000 uIU/mL (0.360-4.800)
== END | disposition home or self-care (01) ==
LOC: LAB 17:15 → LAB SHORT 17:15
PROVIDERS: Emergency Medicine
DX: I49.3 Ventricular premature depolarization (principal); R00.2 Palpitations; Z86.711 Personal history of pulmonary embolism
CPT/HCPCS: 80053; 83880; 84439; 84443; 84484; 85025; 85379

== ENCOUNTER → 2024-03-06 | Outpatient (CLI) | payer OTHER | LOC: LAB SHORT 11:11 → LAB 11:11 | DX: J02.9 Acute pharyngitis, unspecified (principal) ==

== ENCOUNTER → 2024-08-10 | Outpatient (CLI) | payer OTHER ==
[2024-08-10 16:46] LABS: BASOPHILS ABSOLUTE AUTO 0.07 K/mm3 (0.00-0.23); BASOPHILS PERCENT AUTO 1 % (0-2); EOSINOPHILS ABSOLUTE AUTO 0.05 K/mm3 (0.00-0.68); EOSINOPHILS PERCENT AUTO 0 % (0-6); Hemoglobin 12.4 g/dL (11.5-16.0); IMMATURE GRAN ABSOLUTE AUTO 0.06 K/mm3 (0.00-0.10); IMMATURE GRAN PERCENT AUTO 0 % (0-1); LYMPHOCYTES ABSOLUTE AUTO 2.93 K/mm3 (0.84-5.20); LYMPHOCYTES PERCENT AUTO 22 % (21-46); MONOCYTES ABSOLUTE AUTO 1.52 K/mm3 (0.16-1.47); MONOCYTES PERCENT AUTO 11 % (4-13); Mean Corpuscular HGB 33.4 pg (26.0-34.0); Mean Corpuscular HGB Conc 35.4 g/dL (31.5-36.5); Mean Corpuscular Volume 94 fL (80-100); Mean Platelet Volume 9.6 fL (9.1-12.4); NEUTROPHILS ABSOLUTE AUTO 9.02 K/mm3 (1.96-9.15); NEUTROPHILS PERCENT AUTO 66 % (41-73); Platelet Count 360 K/mm3 (150-400); RDW Coefficient Variation 13.5 % (11.7-14.2); RDW Standard Deviation 46.5 fL (35.1-46.3); Red Blood Cell Count 3.71 M/mm3 (3.80-5.20); White Blood Cell Count 13.65 K/mm3 (4.00-11.30)
[2024-08-10 18:53] LABS: Percent Saturation 26.7 % (15.0-50.0)
== END | disposition home or self-care (01) ==
LOC: LAB SHORT 16:42 → LAB 16:42
PROVIDERS: Physician Assistant
DX: R23.3 Spontaneous ecchymoses (principal)
CPT/HCPCS: 82728; 83540; 83550; 85025

== ENCOUNTER → 2025-02-09 | Outpatient (CLI) | payer OTHER ==
[2025-02-09 12:07] LABS: BASOPHILS ABSOLUTE AUTO 0.06 K/mm3 (0.00-0.23); BASOPHILS PERCENT AUTO 1 % (0-2); EOSINOPHILS ABSOLUTE AUTO 0.05 K/mm3 (0.00-0.68); EOSINOPHILS PERCENT AUTO 1 % (0-6); Hematocrit 35.6 % (33.0-51.0); Hemoglobin 12.1 g/dL (11.5-16.0); IMMATURE GRAN ABSOLUTE AUTO 0.02 K/mm3 (0.00-0.10); IMMATURE GRAN PERCENT AUTO 0 % (0-1); LYMPHOCYTES ABSOLUTE AUTO 2.34 K/mm3 (0.84-5.20); LYMPHOCYTES PERCENT AUTO 32 % (21-46); MONOCYTES ABSOLUTE AUTO 0.92 K/mm3 (0.16-1.47); MONOCYTES PERCENT AUTO 13 % (4-13); Mean Corpuscular HGB 31.7 pg (26.0-34.0); Mean Corpuscular Volume 93 fL (80-100); NEUTROPHILS ABSOLUTE AUTO 3.96 K/mm3 (1.96-9.15); NEUTROPHILS PERCENT AUTO 54 % (41-73); Platelet Count 339 K/mm3 (150-400); RDW Coefficient Variation 12.6 % (11.7-14.2); Red Blood Cell Count 3.82 M/mm3 (3.80-5.20); White Blood Cell Count 7.35 K/mm3 (4.00-11.30)
[2025-02-09 12:25] LABS: Albumin, Blood 3.3 g/dL (3.4-5.0); Albumin/Globulin Ratio 0.9 (0.8-1.8); Bilirubin, Total 0.3 mg/dL (0.1-1.0); Bun/Creatinine Ratio 23.8 (12.0-20.0); Calcium, Blood 9.6 mg/dL (8.5-10.1); Creatinine, Blood 0.8 mg/dL (0.40-1.00); Globulin, Blood 3.8 g/dL (2.2-4.0); Magnesium, Blood 1.7 mg/dL (1.6-2.4); Potassium, Blood 3.7 mmol/L (3.5-5.5); Thyroid Stimulating Hormone 0.013 uIU/mL (0.360-4.800); Total Protein, Blood 7.1 g/dL (6.4-8.2)
== END ==
LOC: LAB SHORT 12:02 → LAB 12:02
PROVIDERS: Family Medicine
DX: R00.0 Tachycardia, unspecified (principal)
CPT/HCPCS: 80053; 83735; 84443; 85025

== ENCOUNTER 2025-02-13 23:27 | Emergency (ER) | payer OTHER ==
[~2025-02-13] VITALS: Ht 167.6 cm; Wt 80.7 kg
[2025-02-13 23:40] VITALS: BP 165/98
== END 2025-02-14 00:11 | disposition left against medical advice (07) ==
LOC: ER 23:27
DX: Z53.21 Procedure and treatment not carried out due to patient leaving prior to being seen by health care provider (principal)

== ENCOUNTER 2025-02-18 14:36 | Emergency (ER) | payer OTHER ==
[~2025-02-18] VITALS: Ht 167.6 cm; Wt 79.8 kg
[2025-02-18] MEDS ORDERED: TIROSINT S PO (15:28)
[2025-02-18] MEDS ORDERED: METOPROLOL SUCC25 MG PO (15:28)
[2025-02-18] MEDS ORDERED: PANTOPRAZOLE SO40 M2 PO (15:28)
[2025-02-18 15:48] LABS: BASOPHILS ABSOLUTE AUTO 0.06 K/mm3 (0.00-0.23); BASOPHILS PERCENT AUTO 1 % (0-2); EOSINOPHILS ABSOLUTE AUTO 0.07 K/mm3 (0.00-0.68); EOSINOPHILS PERCENT AUTO 1 % (0-6); Hematocrit 37.3 % (33.0-51.0); Hemoglobin 12.9 g/dL (11.5-16.0); IMMATURE GRAN ABSOLUTE AUTO 0.07 K/mm3 (0.00-0.10); IMMATURE GRAN PERCENT AUTO 1 % (0-1); LYMPHOCYTES ABSOLUTE AUTO 3.25 K/mm3 (0.84-5.20); LYMPHOCYTES PERCENT AUTO 26 % (21-46); MONOCYTES ABSOLUTE AUTO 1.21 K/mm3 (0.16-1.47); MONOCYTES PERCENT AUTO 10 % (4-13); Mean Corpuscular HGB 31.9 pg (26.0-34.0); Mean Corpuscular HGB Conc 34.6 g/dL (31.5-36.5); Mean Corpuscular Volume 92 fL (80-100); NEUTROPHILS ABSOLUTE AUTO 7.68 K/mm3 (1.96-9.15); NEUTROPHILS PERCENT AUTO 62 % (41-73); RDW Coefficient Variation 12.1 % (11.7-14.2); RDW Standard Deviation 41.3 fL (35.1-46.3); Red Blood Cell Count 4.04 M/mm3 (3.80-5.20); White Blood Cell Count 12.34 K/mm3 (4.00-11.30)
[2025-02-18 16:07] LABS: Albumin, Blood 3.5 g/dL (3.4-5.0); Bilirubin, Total 0.3 mg/dL (0.1-1.0); Bun/Creatinine Ratio 26.5 (12.0-20.0); Calcium, Blood 9.6 mg/dL (8.5-10.1); Creatinine, Blood 0.64 mg/dL (0.40-1.00); Globulin, Blood 3.4 g/dL (2.2-4.0); Potassium, Blood 4.2 mmol/L (3.5-5.5); Total Protein, Blood 6.9 g/dL (6.4-8.2)
[2025-02-18 16:12] LABS: Mean Platelet Volume 10.2 fL (9.1-12.4); Platelet Count 361 K/mm3 (150-400)
[2025-02-18 17:17] VITALS: BP 138/92
== END 2025-02-18 17:37 | disposition home or self-care (01) ==
LOC: ER 14:36
PROVIDERS: Emergency Medicine
DX: R79.1 Abnormal coagulation profile (principal); R06.02 Shortness of breath; E03.9 Hypothyroidism, unspecified; Z85.71 Personal history of Hodgkin lymphoma; Z98.84 Bariatric surgery status; Z88.0 Allergy status to penicillin; Z88.5 Allergy status to narcotic agent; Z88.8 Allergy status to other drugs, medicaments and biological substances; Z91.030 Bee allergy status; Z79.890 Hormone replacement therapy; Z79.899 Other long term (current) drug therapy; E61.1 Iron deficiency; R07.9 Chest pain, unspecified
CPT/HCPCS: 36415; 71260; 80053; 82728; 83540; 83550; 83880; 84484; 85025; 85379; 93005; 93010; 99284-25; Q9967

== ENCOUNTER → 2025-03-08 | Outpatient (CLI) | payer OTHER ==
[~2025-03-08] MED LIST changes: +METOPROLOL SUCC25 MG PO; +PANTOPRAZOLE SO40 M2 PO; +TIROSINT S PO
== END | disposition home or self-care (01) ==
LOC: LAB 11:23 → LAB SHORT 11:23
DX: L08.9 Local infection of the skin and subcutaneous tissue, unspecified (principal)
CPT/HCPCS: 87070; 87077; 87205

== ENCOUNTER 2025-05-09 21:44 | Emergency (ER) | payer OTHER ==
[~2025-05-09] VITALS: Ht 167.6 cm; Wt 83.0 kg
[~2025-05-09 21:44] MED LIST changes: +CIME400 PO; +VITAMIN D310 MC4 PO
[2025-05-09 22:35] LABS: BASOPHILS ABSOLUTE AUTO 0.09 K/mm3 (0.00-0.23); BASOPHILS PERCENT AUTO 1 % (0-2); EOSINOPHILS ABSOLUTE AUTO 0.10 K/mm3 (0.00-0.68); EOSINOPHILS PERCENT AUTO 1 % (0-6); Hematocrit 38.2 % (33.0-51.0); Hemoglobin 13.0 g/dL (11.5-16.0); IMMATURE GRAN ABSOLUTE AUTO 0.02 K/mm3 (0.00-0.10); IMMATURE GRAN PERCENT AUTO 0 % (0-1); LYMPHOCYTES ABSOLUTE AUTO 1.81 K/mm3 (0.84-5.20); LYMPHOCYTES PERCENT AUTO 22 % (21-46); MONOCYTES ABSOLUTE AUTO 0.65 K/mm3 (0.16-1.47); MONOCYTES PERCENT AUTO 8 % (4-13); Mean Corpuscular HGB Conc 34.0 g/dL (31.5-36.5); Mean Corpuscular Volume 92 fL (80-100); NEUTROPHILS ABSOLUTE AUTO 5.57 K/mm3 (1.96-9.15); NEUTROPHILS PERCENT AUTO 68 % (41-73); NRBC ABSOLUTE 0.00 K/mm3 (0.00-0.02); NRBC Auto 0.0 /100 WBC (0.0-0.2); Platelet Count 390 K/mm3 (150-400); RDW Coefficient Variation 13.6 % (11.7-14.2); RDW Standard Deviation 45.3 fL (35.1-46.3)
[2025-05-09 22:58] LABS: Alanine Aminotransfer (ALT/SGP 19.0 U/L (12-78); Albumin, Blood 3.5 g/dL (3.4-5.0); Albumin/Globulin Ratio 0.9 (0.8-1.8); Anion Gap 10.0 mmol/L (3-11); Aspartate Aminotrans (AST/SGOT 19.0 U/L (12-37); Bilirubin, Total 0.3 mg/dL (0.1-1.0); Blood Urea Nitrogen 10.0 mg/dL (8-24); CO2, Blood 22.0 mmol/L (21-32); Calcium, Blood 9.1 mg/dL (8.5-10.1); Chloride, Blood 106.0 mmol/L (98-108); Creatinine, Blood 0.78 mg/dL (0.40-1.00); Globulin, Blood 3.8 g/dL (2.2-4.0); Glucose, Blood 123.0 mg/dL (70-99); Potassium, Blood 3.9 mmol/L (3.5-5.5); Sodium, Blood 134.0 mmol/L (136-145); Total Protein, Blood 7.3 g/dL (6.4-8.2)
[2025-05-10] MEDS ORDERED: DiphenhydrAMINE HCl 50 MG/ML 1ML Vial IV ONE (03:15)
[2025-05-10] MEDS ORDERED: Prochlorperazine Edisylate 10 mg Vial IV ONE (03:15)
[2025-05-10] MEDS ORDERED: NS 1,000 ML IV SCH (03:15)
[2025-05-10] MEDS ORDERED: Ketorolac Tromethamine 15mg Vial IV ONE (03:40)
[2025-05-10 04:00] VITALS: BP 122/61
== END 2025-05-10 06:49 | disposition home or self-care (01) ==
LOC: ER 21:44
PROVIDERS: Student in an Organized Health Care Education/Training Program
DX: G44.209 Tension-type headache, unspecified, not intractable (principal); E86.0 Dehydration; E03.9 Hypothyroidism, unspecified; E78.5 Hyperlipidemia, unspecified; E11.9 Type 2 diabetes mellitus without complications; I10 Essential (primary) hypertension; Z86.718 Personal history of other venous thrombosis and embolism; Z96.3 Presence of artificial larynx; Z88.0 Allergy status to penicillin; Z88.5 Allergy status to narcotic agent; Z88.8 Allergy status to other drugs, medicaments and biological substances; Z91.030 Bee allergy status; Z79.890 Hormone replacement therapy; Z79.899 Other long term (current) drug therapy; Z59.89 Other problems related to housing and economic circumstances
CPT/HCPCS: 70450; 80053; 85025; 93005; 93010; 96374; 96375; 99284-25; J0780; J1200; J1885; J7030

== ENCOUNTER 2025-05-27 11:21 | Inpatient (IN) | payer OTHER ==
[~2025-05-27] VITALS: Ht 167.6 cm; Wt 84.7 kg
[~2025-05-27 11:21] MED LIST changes: -CIPR500 PO; -FAMO40 PO; -LACT; -LOSA50 PO; -OXYC5 PO
[2025-05-27 12:47] LABS: BASOPHILS ABSOLUTE AUTO 0.10 K/mm3 (0.00-0.23); BASOPHILS PERCENT AUTO 0 % (0-2); EOSINOPHILS ABSOLUTE AUTO 0.00 K/mm3 (0.00-0.68); EOSINOPHILS PERCENT AUTO 0 % (0-6); Hematocrit 35.7 % (33.0-51.0); Hemoglobin 12.2 g/dL (11.5-16.0); IMMATURE GRAN ABSOLUTE AUTO 0.39 K/mm3 (0.00-0.10); IMMATURE GRAN PERCENT AUTO 1 % (0-1); LYMPHOCYTES ABSOLUTE AUTO 1.10 K/mm3 (0.84-5.20); LYMPHOCYTES PERCENT AUTO 3 % (21-46); MONOCYTES ABSOLUTE AUTO 2.94 K/mm3 (0.16-1.47); MONOCYTES PERCENT AUTO 9 % (4-13); Mean Corpuscular HGB Conc 34.2 g/dL (31.5-36.5); Mean Corpuscular Volume 95 fL (80-100); NEUTROPHILS ABSOLUTE AUTO 28.06 K/mm3 (1.96-9.15); NEUTROPHILS PERCENT AUTO 86 % (41-73); NRBC ABSOLUTE 0.00 K/mm3 (0.00-0.02); NRBC Auto 0.0 /100 WBC (0.0-0.2); Platelet Count 313 K/mm3 (150-400); RDW Coefficient Variation 14.3 % (11.7-14.2); RDW Standard Deviation 49.4 fL (35.1-46.3)
[2025-05-27 13:16] LABS: Alanine Aminotransfer (ALT/SGP 21.0 U/L (12-78); Albumin, Blood 2.9 g/dL (3.4-5.0); Albumin/Globulin Ratio 0.7 (0.8-1.8); Anion Gap 7.0 mmol/L (3-11); Aspartate Aminotrans (AST/SGOT 28.0 U/L (12-37); Bilirubin, Total 0.7 mg/dL (0.1-1.0); Blood Urea Nitrogen 15.0 mg/dL (8-24); CO2, Blood 23.0 mmol/L (21-32); Calcium, Blood 8.2 mg/dL (8.5-10.1); Chloride, Blood 109.0 mmol/L (98-108); Creatinine, Blood 1.1 mg/dL (0.40-1.00); Globulin, Blood 4.0 g/dL (2.2-4.0); Glucose, Blood 119.0 mg/dL (70-99); Potassium, Blood 4.1 mmol/L (3.5-5.5); Sodium, Blood 135.0 mmol/L (136-145); Total Protein, Blood 6.9 g/dL (6.4-8.2)
[2025-05-27] MEDS ORDERED: CefTRIAXone Sodium 2,000 MG in NS 100 ML IV ONE (14:20)
[2025-05-27] MEDS ORDERED: NS 1,000 ML IV SCH (14:20)
[2025-05-27] MEDS ORDERED: FentaNYL Citrate 50 MCG/ML 2 ML Injection IV ONE ×2 (14:35→17:05)
[2025-05-27 14:50] LABS: Source, Urine Clean Catch
[2025-05-27 14:55] LABS: Bilirubin, Urine Neg (Neg); Color, Urine Yellow (P-Yellow); Glucose Qualitative, Urine Neg (Neg); Ketones, Urine 2+ (Neg); Leukocyte Esterase, Urine 3+ (Neg); Protein, Urine 3+ (Neg); Specific Gravity, Urine 1.020 (1.003-1.022); Urobilinogen, Urine NORM (Normal)
[2025-05-27 15:34] LABS: Red Blood Cells, Urine 0-2 /hpf (0-2); White Blood Cells, Urine TNTC /hpf (0-5)
[2025-05-27] MEDS ORDERED: Naloxone HCl 0.4MG / ML 1ML Vial IV PRN (17:40)
[2025-05-27] MEDS ORDERED: FentaNYL Citrate 50 MCG/ML 2 ML Injection IV PRN (17:40)
[2025-05-27 20:16] VITALS: BP 148/73
[2025-05-27] MEDS ORDERED: PANTOPRAZOLE SO40 M2 PO (20:43)
[2025-05-27] MEDS ORDERED: LOSA50 PO (20:44)
[2025-05-27] MEDS ORDERED: Lactobacil 2-S.Thermo-Bifido 1 1 Cap PO SCH (21:00)
[2025-05-28 03:46] VITALS: BP 122/66
[2025-05-28 04:59] LABS: BASOPHILS ABSOLUTE AUTO 0.08 K/mm3 (0.00-0.23); BASOPHILS PERCENT AUTO 0 % (0-2); EOSINOPHILS ABSOLUTE AUTO 0.07 K/mm3 (0.00-0.68); EOSINOPHILS PERCENT AUTO 0 % (0-6); Hematocrit 32.6 % (33.0-51.0); Hemoglobin 10.9 g/dL (11.5-16.0); IMMATURE GRAN ABSOLUTE AUTO 0.15 K/mm3 (0.00-0.10); IMMATURE GRAN PERCENT AUTO 1 % (0-1); LYMPHOCYTES ABSOLUTE AUTO 1.42 K/mm3 (0.84-5.20); LYMPHOCYTES PERCENT AUTO 6 % (21-46); MONOCYTES ABSOLUTE AUTO 3.08 K/mm3 (0.16-1.47); MONOCYTES PERCENT AUTO 13 % (4-13); Mean Corpuscular HGB Conc 33.4 g/dL (31.5-36.5); Mean Corpuscular Volume 96 fL (80-100); NEUTROPHILS ABSOLUTE AUTO 18.27 K/mm3 (1.96-9.15); NEUTROPHILS PERCENT AUTO 79 % (41-73); NRBC ABSOLUTE 0.00 K/mm3 (0.00-0.02); NRBC Auto 0.0 /100 WBC (0.0-0.2); Platelet Count 291 K/mm3 (150-400); RDW Coefficient Variation 14.5 % (11.7-14.2); RDW Standard Deviation 50.4 fL (35.1-46.3)
[2025-05-28 05:50] LABS: Alanine Aminotransfer (ALT/SGP 19.0 U/L (12-78); Albumin, Blood 2.5 g/dL (3.4-5.0); Albumin/Globulin Ratio 0.7 (0.8-1.8); Anion Gap 10.0 mmol/L (3-11); Aspartate Aminotrans (AST/SGOT 18.0 U/L (12-37); Bilirubin, Total 0.5 mg/dL (0.1-1.0); Blood Urea Nitrogen 10.0 mg/dL (8-24); CO2, Blood 19.0 mmol/L (21-32); Calcium, Blood 8.1 mg/dL (8.5-10.1); Chloride, Blood 110.0 mmol/L (98-108); Creatinine, Blood 0.76 mg/dL (0.40-1.00); Globulin, Blood 3.6 g/dL (2.2-4.0); Glucose, Blood 114.0 mg/dL (70-99); Magnesium, Blood 1.9 mg/dL (1.6-2.4); Potassium, Blood 3.9 mmol/L (3.5-5.5); Sodium, Blood 135.0 mmol/L (136-145); Total Protein, Blood 6.1 g/dL (6.4-8.2)
--- NOTE | 2025-05-28 06:07 | NUR ---
SHIFT SUMMARY PT ADMITTED DURING THE EVENING TO ROOM 338 FOR PYELONEPHRITIS AND RIGHT FLANK/ABD PAIN. PT MEDICATED FOR PAIN PER EMAR. 1 LITER LR INFUSED PER ORDER. PT WITH HX OF GASTROPARESIS AND HAS A G-TUBE. PT STATES SHE USUALLY INFUSES WATER AT NIGHT, AND USES JEVITY FOR TUBE FEEDING WHEN SHE IS NOT FEELING WELL. DURING THE NIGHT, PT ABLE TO TAKE ALL PO MEDICATION AND TOLERATED PO WATER WITHOUT DIFFICULTY. MEDICATED X 1 WITH PHENERGAN FOR NAUSEA PER EMAR. PT SBA TO BATHROOM WITH STEADY GAIT. SLEPT INTERMITTENTLY DURING THE NIGHT.
[2025-05-28 07:48] VITALS: BP 109/64
[2025-05-28] MEDS ORDERED: Enoxaparin 40 MG/0.4 ML SYR SC SCH (09:00)
[2025-05-28] MEDS ORDERED: Ketorolac Tromethamine 15mg Vial IV PRN (13:20)
[2025-05-28] MEDS ORDERED: NS 1,000 ML IV SCH (13:20)
[2025-05-28] MEDS ORDERED: CefTRIAXone Sodium 2,000 MG in NS 100 ML IV SCH (15:00)
[2025-05-28] MEDS ORDERED: OXYC5 PO (15:22)
[2025-05-28] MEDS ORDERED: FAMO40 PO (15:22)
[2025-05-28 16:08] VITALS: BP 137/76
--- NOTE | 2025-05-28 17:47 | NUR ---
SHIFT SUMMARY PT CONT LEVEL OF CARE PT NOTED TO BE A&OX4 AND IND IN ROOM. PT RECEIVING IV FLUIDS AT 100/HR. PT CONT TO STRUGGLE WITH PAIN MANGEMENT AND NEW ORDER FOR TORADOL RECIEVED. SEE MAR FOR PAIN MANAGEMENT DETAILS.
--- NOTE | 2025-05-28 18:37 | NUR ---
NOTE ASSUMED CARE OF PT. PT REPORTS PAIN, THIS RN GAVE PT PAIN MEDS. PT IN BED, BED IN LOWEST POSITION, CALL LIGHT IN REACH. NO ACUTE CHANGES. PT HAS NS RUNNING AT 100ML/HR. CALLS APPROPRIATE.
[2025-05-28 20:04] VITALS: BP 122/72
[2025-05-29 03:23] VITALS: BP 136/79
--- NOTE | 2025-05-29 05:26 | NUR ---
SHIFT SUMMARY NOC PT A/O X 4. PLEASANT AND COOPERATIVE WITH CARE. VSS. NO ACUTE EVENTS TO REPORT. PT ABD PAIN BEING MANAGED PER EMAR. SPOUSE STAYED NIGHT WITH PT. 2L OF NS IS INFUSING @ 100 ML/HR. CHRONIC G TUBE IN LUQ OPEN TO AIR, BUT NOT BEING UTILIZED DURING HOSPITALL STAY. PT CURRENTLY RESTING WITH BED IN LOWEST POSITION, AND CALL LIGHT WITHIN REACH.
[2025-05-29 05:54] LABS: BASOPHILS ABSOLUTE AUTO 0.07 K/mm3 (0.00-0.23); BASOPHILS PERCENT AUTO 1 % (0-2); EOSINOPHILS ABSOLUTE AUTO 0.12 K/mm3 (0.00-0.68); EOSINOPHILS PERCENT AUTO 1 % (0-6); Hematocrit 30.6 % (33.0-51.0); Hemoglobin 10.4 g/dL (11.5-16.0); IMMATURE GRAN ABSOLUTE AUTO 0.07 K/mm3 (0.00-0.10); IMMATURE GRAN PERCENT AUTO 1 % (0-1); LYMPHOCYTES ABSOLUTE AUTO 1.68 K/mm3 (0.84-5.20); LYMPHOCYTES PERCENT AUTO 14 % (21-46); MONOCYTES ABSOLUTE AUTO 2.00 K/mm3 (0.16-1.47); MONOCYTES PERCENT AUTO 16 % (4-13); Mean Corpuscular HGB Conc 34.0 g/dL (31.5-36.5); Mean Corpuscular Volume 94 fL (80-100); NEUTROPHILS ABSOLUTE AUTO 8.22 K/mm3 (1.96-9.15); NEUTROPHILS PERCENT AUTO 68 % (41-73); NRBC ABSOLUTE 0.00 K/mm3 (0.00-0.02); NRBC Auto 0.0 /100 WBC (0.0-0.2); Platelet Count 285 K/mm3 (150-400); RDW Coefficient Variation 14.2 % (11.7-14.2); RDW Standard Deviation 49.0 fL (35.1-46.3)
[2025-05-29 06:15] LABS: Anion Gap 8.0 mmol/L (3-11); Blood Urea Nitrogen 12.0 mg/dL (8-24); CO2, Blood 23.0 mmol/L (21-32); Calcium, Blood 8.2 mg/dL (8.5-10.1); Chloride, Blood 111.0 mmol/L (98-108); Creatinine, Blood 0.76 mg/dL (0.40-1.00); Glucose, Blood 85.0 mg/dL (70-99); Potassium, Blood 3.6 mmol/L (3.5-5.5); Sodium, Blood 138.0 mmol/L (136-145)
[2025-05-29 07:56] VITALS: BP 133/77
--- NOTE | 2025-05-29 17:03 | NUR ---
End of shift summary: Patient is alert and oriented x4; pleasant and cooperative with care. Patient has had complaint of pain in right abdoment and medicated per EMAR with good results. Patient denies SOB, CP, N/V/D this shift. Patient up to shower independently today. Patient utilizing call light appropriately; call light within reach and bed in lowest position. Will continue to monitor until next shift nurse arrives and report is given.
[2025-05-29 17:54] VITALS: BP 165/92
[2025-05-29 20:04] VITALS: BP 126/77
[2025-05-30 05:28] VITALS: BP 145/83
--- NOTE | 2025-05-30 05:31 | NUR ---
SHIFT SUMMARY NOC PT A/O X 4. PLEASANT AND COOPERATIVE WITH CARE. PT FEBRILE PRIOR TO SHIFT CHANGE TEMP 100.0F AND GIVEN TYLENOL, WHEN ASSESSED DURING CHANGE OF SHIT VS TEMP 97.2F. PT STARTED RECEIVED FIRST DOSE OF LOPRESSOR WITH BEDTIME RX. PT ABD PAIN AND NAUSEA BEING MANAGED PER EMAR. G TUBE IN LUQ NOT CURRENTLY BEING USED WHILE ADMITTED TO UNIT. PT POSSIBLE DISCHARGE TODAY PENDING LABS, PAIN, AND FEVERS. PT SPOUSE STAYED NIGHT WITH PT. PT CURRENTLY RESTING WITH BED IN LOWEST POSITION, AND CALL LIGHT WITHIN REACH.
[2025-05-30 05:37] LABS: BASOPHILS ABSOLUTE AUTO 0.07 K/mm3 (0.00-0.23); BASOPHILS PERCENT AUTO 1 % (0-2); EOSINOPHILS ABSOLUTE AUTO 0.13 K/mm3 (0.00-0.68); EOSINOPHILS PERCENT AUTO 2 % (0-6); Hematocrit 30.8 % (33.0-51.0); Hemoglobin 10.4 g/dL (11.5-16.0); IMMATURE GRAN ABSOLUTE AUTO 0.03 K/mm3 (0.00-0.10); IMMATURE GRAN PERCENT AUTO 0 % (0-1); LYMPHOCYTES ABSOLUTE AUTO 1.50 K/mm3 (0.84-5.20); LYMPHOCYTES PERCENT AUTO 21 % (21-46); MONOCYTES ABSOLUTE AUTO 1.40 K/mm3 (0.16-1.47); MONOCYTES PERCENT AUTO 20 % (4-13); Mean Corpuscular HGB Conc 33.8 g/dL (31.5-36.5); Mean Corpuscular Volume 92 fL (80-100); NEUTROPHILS ABSOLUTE AUTO 4.01 K/mm3 (1.96-9.15); NEUTROPHILS PERCENT AUTO 56 % (41-73); NRBC ABSOLUTE 0.00 K/mm3 (0.00-0.02); NRBC Auto 0.0 /100 WBC (0.0-0.2); Platelet Count 322 K/mm3 (150-400); RDW Coefficient Variation 13.9 % (11.7-14.2); RDW Standard Deviation 47.2 fL (35.1-46.3)
[2025-05-30 06:01] LABS: Anion Gap 8.0 mmol/L (3-11); Blood Urea Nitrogen 11.0 mg/dL (8-24); CO2, Blood 25.0 mmol/L (21-32); Calcium, Blood 8.2 mg/dL (8.5-10.1); Chloride, Blood 108.0 mmol/L (98-108); Creatinine, Blood 0.81 mg/dL (0.40-1.00); Glucose, Blood 97.0 mg/dL (70-99); Potassium, Blood 3.5 mmol/L (3.5-5.5); Sodium, Blood 137.0 mmol/L (136-145)
[2025-05-30 07:31] VITALS: BP 140/83
[2025-05-30] MEDS ORDERED: TRAM50 PO (13:03)
[2025-05-30] MEDS ORDERED: ACET325 PO (13:04)
[2025-05-30] MEDS ORDERED: CIPR500 PO (13:18)
[2025-05-30] MEDS ORDERED: LACT (13:19)
--- NOTE | 2025-05-30 15:15 | NUR ---
Patient discharged home with and mom. Patient belongings in room all given, medication and education materials discussed and given to patient prior to leaving. Patient verbalized understanding; prescriptions faxed to [facility] per patient preference. Patient assisted out to car via wheelchair by staff.
[2025-06-07] MEDS ORDERED: VITAMIN D PO (10:56)
[2025-06-07] MEDS ORDERED: CIME400 PO (10:57)
[2025-06-07] MEDS ORDERED: LEVSOD75 PO (10:58)
[2025-06-07] MEDS ORDERED: LOSA50 PO (10:58)
== END 2025-05-30 14:59 | disposition home or self-care (01) | DRG 872 ==
LOC: ER 11:21 → ERHOLD 11:53 → MEDS 11:53 → ENPENDDIS 05-30 12:51 → MEDS 05-30 14:59
PROVIDERS: Student in an Organized Health Care Education/Training Program; ADMIT Family Medicine
DX: A41.51 Sepsis due to Escherichia coli [E. coli] (principal); N10 Acute pyelonephritis; D84.9 Immunodeficiency, unspecified; N17.9 Acute kidney failure, unspecified; N39.0 Urinary tract infection, site not specified; E03.9 Hypothyroidism, unspecified; E11.43 Type 2 diabetes mellitus with diabetic autonomic (poly)neuropathy; K31.84 Gastroparesis; E78.5 Hyperlipidemia, unspecified; K21.9 Gastro-esophageal reflux disease without esophagitis; I10 Essential (primary) hypertension; D64.9 Anemia, unspecified; R10.31 Right lower quadrant pain; E88.09 Other disorders of plasma-protein metabolism, not elsewhere classified; Z96.3 Presence of artificial larynx; Z85.71 Personal history of Hodgkin lymphoma; Z88.8 Allergy status to other drugs, medicaments and biological substances; Z88.0 Allergy status to penicillin; Z91.030 Bee allergy status; Z88.5 Allergy status to narcotic agent; Z79.890 Hormone replacement therapy; Z79.899 Other long term (current) drug therapy; Z98.84 Bariatric surgery status; Z86.73 Personal history of transient ischemic attack (TIA), and cerebral infarction without residual deficits; Z98.891 History of uterine scar from previous surgery; Z87.19 Personal history of other diseases of the digestive system; Z90.710 Acquired absence of both cervix and uterus; Z90.722 Acquired absence of ovaries, bilateral; Z98.51 Tubal ligation status
CPT/HCPCS: 36415; 74177; 80048; 80053; 81001; 81025; 82947; 83605; 83690; 83735; 85025; 87040; 87077; 87086; 87186; 94762; 96365-59; 96375; 96376; 99285-25; A9270; J0696; J1650; J1885; J3010; J7030; J7120; Q9967

== ENCOUNTER → 2025-05-27 | Outpatient (CLI) | payer OTHER ==
[~2025-05-27] MED LIST changes: +CIPR500 PO; +FAMO40 PO; +LACT; +LOSA50 PO; +OXYC5 PO
[2025-05-27 10:11] LABS: BASOPHILS ABSOLUTE AUTO 0.06 K/mm3 (0.00-0.23); BASOPHILS PERCENT AUTO 0 % (0-2); EOSINOPHILS ABSOLUTE AUTO 0.02 K/mm3 (0.00-0.68); EOSINOPHILS PERCENT AUTO 0 % (0-6); Hematocrit 38.0 % (33.0-51.0); Hemoglobin 13.1 g/dL (11.5-16.0); IMMATURE GRAN ABSOLUTE AUTO 0.14 K/mm3 (0.00-0.10); IMMATURE GRAN PERCENT AUTO 1 % (0-1); LYMPHOCYTES ABSOLUTE AUTO 0.82 K/mm3 (0.84-5.20); LYMPHOCYTES PERCENT AUTO 4 % (21-46); MONOCYTES ABSOLUTE AUTO 0.83 K/mm3 (0.16-1.47); MONOCYTES PERCENT AUTO 4 % (4-13); Mean Corpuscular HGB Conc 34.5 g/dL (31.5-36.5); Mean Corpuscular Volume 91 fL (80-100); NEUTROPHILS ABSOLUTE AUTO 20.00 K/mm3 (1.96-9.15); NEUTROPHILS PERCENT AUTO 92 % (41-73); NRBC ABSOLUTE 0.00 K/mm3 (0.00-0.02); NRBC Auto 0.0 /100 WBC (0.0-0.2); Platelet Count 357 K/mm3 (150-400); RDW Coefficient Variation 14.2 % (11.7-14.2); RDW Standard Deviation 47.3 fL (35.1-46.3)
[2025-05-27 10:29] LABS: Alanine Aminotransfer (ALT/SGP 21.0 U/L (12-78); Albumin, Blood 3.3 g/dL (3.4-5.0); Albumin/Globulin Ratio 0.8 (0.8-1.8); Anion Gap 16.0 mmol/L (6-16); Aspartate Aminotrans (AST/SGOT 23.0 U/L (12-37); Bilirubin, Total 1.3 mg/dL (0.1-1.0); Blood Urea Nitrogen 17.0 mg/dL (8-24); CO2, Blood 21.0 mmol/L (21-32); Calcium, Blood 9.0 mg/dL (8.5-10.1); Chloride, Blood 104.0 mmol/L (98-108); Creatinine, Blood 1.39 mg/dL (0.40-1.00); Globulin, Blood 4.0 g/dL (2.2-4.0); Glucose, Blood 117.0 mg/dL (70-99); Potassium, Blood 4.0 mmol/L (3.5-5.5); Sodium, Blood 137.0 mmol/L (136-145); Total Protein, Blood 7.3 g/dL (6.4-8.2)
== END ==
LOC: LAB SHORT 09:58 → LAB 09:58
PROVIDERS: Chiropractor
DX: R10.31 Right lower quadrant pain (principal); N39.0 Urinary tract infection, site not specified
CPT/HCPCS: 80053; 83690; 85025; 87077; 87086; 87186

== ENCOUNTER 2025-08-25 19:06 | Emergency (ER) | payer OTHER ==
[~2025-08-25] VITALS: Ht 157.5 cm; Wt 90.7 kg
[~2025-08-25 19:06] MED LIST changes: +CIPR500 PO; +FAMO40 PO; +LACT; +LOSA50 PO; +OXYC5 PO; +VITAMIN D PO
[2025-08-25] MEDS ORDERED: PANTOPRAZOLE SO40 M2 PO (19:36)
[2025-08-25 19:56] LABS: BASOPHILS ABSOLUTE AUTO 0.05 K/mm3 (0.00-0.23); BASOPHILS PERCENT AUTO 1 % (0-2); EOSINOPHILS ABSOLUTE AUTO 0.21 K/mm3 (0.00-0.68); EOSINOPHILS PERCENT AUTO 3 % (0-6); Hematocrit 33.9 % (33.0-51.0); Hemoglobin 11.7 g/dL (11.5-16.0); IMMATURE GRAN ABSOLUTE AUTO 0.03 K/mm3 (0.00-0.10); IMMATURE GRAN PERCENT AUTO 0 % (0-1); LYMPHOCYTES ABSOLUTE AUTO 2.98 K/mm3 (0.84-5.20); LYMPHOCYTES PERCENT AUTO 35 % (21-46); MONOCYTES ABSOLUTE AUTO 1.01 K/mm3 (0.16-1.47); MONOCYTES PERCENT AUTO 12 % (4-13); Mean Corpuscular HGB Conc 34.5 g/dL (31.5-36.5); Mean Corpuscular Volume 92 fL (80-100); NEUTROPHILS ABSOLUTE AUTO 4.28 K/mm3 (1.96-9.15); NEUTROPHILS PERCENT AUTO 50 % (41-73); NRBC ABSOLUTE 0.00 K/mm3 (0.00-0.02); NRBC Auto 0.0 /100 WBC (0.0-0.2); Platelet Count 355 K/mm3 (150-400); RDW Coefficient Variation 13.0 % (11.7-14.2); RDW Standard Deviation 43.8 fL (35.1-46.3)
[2025-08-25 20:29] LABS: Alanine Aminotransfer (ALT/SGP 20.0 U/L (12-78); Albumin, Blood 3.5 g/dL (3.4-5.0); Albumin/Globulin Ratio 1.0 (0.8-1.8); Anion Gap 10.0 mmol/L (3-11); Aspartate Aminotrans (AST/SGOT 13.0 U/L (12-37); Bilirubin, Total 0.2 mg/dL (0.1-1.0); Blood Urea Nitrogen 16.0 mg/dL (8-24); CO2, Blood 23.0 mmol/L (21-32); Calcium, Blood 9.3 mg/dL (8.5-10.1); Chloride, Blood 110.0 mmol/L (98-108); Creatinine, Blood 0.99 mg/dL (0.40-1.00); Globulin, Blood 3.5 g/dL (2.2-4.0); Glucose, Blood 77.0 mg/dL (70-99); Potassium, Blood 3.7 mmol/L (3.5-5.5); Sodium, Blood 139.0 mmol/L (136-145); Total Protein, Blood 7.0 g/dL (6.4-8.2)
[2025-08-25 21:30] VITALS: BP 132/79
== END 2025-08-25 22:53 | disposition home or self-care (01) ==
LOC: ER 19:06
PROVIDERS: Emergency Medicine
DX: R55 Syncope and collapse (principal); E03.9 Hypothyroidism, unspecified; E78.5 Hyperlipidemia, unspecified; E11.9 Type 2 diabetes mellitus without complications; I10 Essential (primary) hypertension; Z88.8 Allergy status to other drugs, medicaments and biological substances; Z88.0 Allergy status to penicillin; Z88.5 Allergy status to narcotic agent; Z91.030 Bee allergy status; Z79.899 Other long term (current) drug therapy; Z79.890 Hormone replacement therapy
CPT/HCPCS: 80053; 85025; 93005; 93010; 99284-25

== ENCOUNTER 2025-09-08 09:35 | Day surgery (SDC) | payer OTHER ==
[2025-09-08] VITALS (8 sets, daily range): BP systolic 116–139; BP diastolic 63–86
[~2025-09-08] VITALS: Ht 167.6 cm; Wt 86.4 kg
[~2025-09-08 09:35] MED LIST changes: +Bupivacaine 0.5% W/EPI 1:200000 SDV 30 ML Vial ONE
[2025-09-08] MEDS ORDERED: TIROSINT S PO (09:55)
[2025-09-08] MEDS ORDERED: CeFAZolin Sodium 2,000 MG VIAL ONE (10:05)
--- NOTE | 2025-09-08 11:03 | NUR ---
09/08/25 1102 Vida Larson UPON RECEIPT OF CHART NOTED ANESTHESIA REVIEW THAT STATED DUE TO MULTIPLE COMORBIDITIES, PT'S CASE NEEDS TO BE DONE AT [facility]. ADVISED CHARGE NURSE MAGEN HUTCHINSON OF ABOVE AND SHE REVIEWED WITH NURSING RESPITE COORDINATOR BETITO RODRIGUES. THIS RN WENT TO LET DR MENJIVAR'S KNOW AND DR MENJIVAR'S ADVISED SHE WAS JUST COMING TO TALK TO US ABOUT THIS BECAUSE SHE HAD SPOKEN TO DR KELLY AND HE WAS PLANNING TO REVIEW CHART WHEN DONE WITH CURRENT CASE AND ASSESS PATIENT. SHE VERBALIZED SHE HAD ALREADY SPOKE TO DR GARCÍA AT SOME POINT WELL. CHARGE NURSE PITA CONTACTED GUEST SERVICES ASSOCIATE GERMAN LA AND EUGENIO CAME TO NURSE'S STATION AND REVIEWED PT'S CHART AND SPOKE TO DR RIGGS. IT WAS DECIDED THAT PT'S CASE SHOULD BE DONE AT [facility]. GUEST SERVICES ASSOCIATE EUGENIO NOTIFIED [facility] DAY SURGERY. THIS RN AND CHARGE NURSE PITA WALKED PATIENT OVER AND I GAVE REPORT TO FRANCHESKA STONE.
[2025-09-08] MEDS ORDERED: CeFAZolin Sodium 2,000 MG in NS 100 ML IV SCH (11:10)
[2025-09-08] MEDS ORDERED: Lidocaine 2%-Epineph 1:200000 20 ML SDV ONE (11:56)
[2025-09-08] MEDS ORDERED: EpiNEPhrine 1 MG/1 ML 1ML Vial ONE (11:56)
[2025-09-08] MEDS ORDERED: Ketorolac Tromethamine 30mg Vial IV ONE (12:17)
[2025-09-08] MEDS ORDERED: FentaNYL Citrate 50 MCG/ML 2 ML Injection IV PRN ×2 (13:00)
[2025-09-08] MEDS ORDERED: Albuterol 2.5 MG/3 ML VIAL INH PRN (13:00)
[2025-09-08] MEDS ORDERED: HydrALAZINE HCl 20 MG / ML 1ML Vial IV PRN (13:00)
[2025-09-08] MEDS ORDERED: ePHEDrine Sulfate 50 MG/ML 1ML Injection IV PRN (13:05)
--- NOTE | 2025-09-08 14:41 | NUR ---
PT DOING WELL, NO N/V PT MEDICATED FOR PAIN AT 1345 NO ISSUES Discharged via wheelchair to private car for ride home. Patient States Post-Procedure ride home has been arranged. Discharge instructions reviewed with patient. Patient verbalizes understanding. Copy given to patient to take home. PRESSCRPTIONS CALLED INTO PHARMACY, PT WENT HOME WITH POLAR PACK APPLIED TAUGHT HOW TO USE IT, PT REMINDED TO SOFT TILE SETTER 325MG EC ASA AT PHARMACY FOR DVT PROPHYLAXIS
== END 2025-09-08 23:00 | disposition home or self-care (01) ==
LOC: ORSCSDS 09:35 → ORSCMMR 11:10 → ORSCSDS 23:00
PROVIDERS: Orthopaedic Surgery
PROC: 0SBC4ZZ Excision of Right Knee Joint, Percutaneous Endoscopic Approach (ICD-10-PCS; principal; 2025-09-08 12:15)
DX: S83.241A Other tear of medial meniscus, current injury, right knee, initial encounter (principal); S83.281A Other tear of lateral meniscus, current injury, right knee, initial encounter; F41.9 Anxiety disorder, unspecified; E11.9 Type 2 diabetes mellitus without complications; K21.9 Gastro-esophageal reflux disease without esophagitis; E78.5 Hyperlipidemia, unspecified; Z85.71 Personal history of Hodgkin lymphoma; I10 Essential (primary) hypertension; E03.9 Hypothyroidism, unspecified; G47.33 Obstructive sleep apnea (adult) (pediatric); Z86.711 Personal history of pulmonary embolism; Z79.899 Other long term (current) drug therapy
CPT/HCPCS: 82947; A9270; J0166; J0169; J0690; J1885; J7120